=== PATIENT | female | born 1940 | race African-American/Black ===

== ENCOUNTER 2018-11-08 23:42 | Inpatient (IN) | payer MEDICARE, OTHER ==
[~2018-11-08] VITALS: Ht 162.6 cm; Wt 76.0 kg
[2018-11-08 23:48] VITALS: BP 133/54
[2018-11-09] VITALS: BP 133/54
[2018-11-09] MEDS ORDERED: PIPERACILLIN/TAZ 3.375G PREMIX 50 ML IV SCH ×2 (01:00→02:00)
[2018-11-09] MEDS: MORPHINE SULFATE 2 MG/ML CPJ (NOT FOR IM USE) IV PRN ×3 (01:37→21:37)
[2018-11-09] MEDS ORDERED: VANCOMYCIN 1500MG in DEXTROSE 5% WATER 250ML IV SCH (03:00)
[2018-11-09 04:00] VITALS: BP 141/58
[2018-11-09] MEDS ORDERED: PIOG15TA66 PO (06:14)
[2018-11-09] MEDS ORDERED: AMLO10TA80 PO (06:14)
[2018-11-09] MEDS ORDERED: TERA5CAP4 PO (06:14)
[2018-11-09] MEDS ORDERED: FERR324T4 PO (06:14)
[2018-11-09] MEDS ORDERED: METO-539 PO (06:14)
[2018-11-09] MEDS ORDERED: LINA5TAB PO (06:14)
[2018-11-09] MEDS ORDERED: SIMV20TA6 PO (06:14)
[2018-11-09] MEDS ORDERED: GLYB5TAB7 PO (06:14)
[2018-11-09] MEDS ORDERED: GLIM1TAB2 PO (06:14)
[2018-11-09] MEDS ORDERED: DEXTROSE 50% WATER 50ML SYRINGE IV PRN (06:15)
[2018-11-09] MEDS: BLOOD SUGAR DIAGNOSTIC STRIP TEST SCH ×3 (06:34→18:21)
[2018-11-09] MEDS: PANTOPRAZOLE 40MG DR TABLET PO SCH (06:58)
[2018-11-09] MEDS: INSULIN LISPRO 100 UNITS/ML SUBCUT SCH ×4 (07:50→21:32)
[2018-11-09 08:00] VITALS: BP 166/74
[2018-11-09] MEDS: AMLODIPINE 10MG TABLET PO SCH (09:34)
[2018-11-09] MEDS: METOPROLOL TARTRATE 50MG TABLET PO SCH ×2 (09:34→21:35)
[2018-11-09] MEDS: DEXT 5%/0.9% NACL 1,000 ML IV SCH (09:38)
[2018-11-09 10:01] LABS: EOSINOPHILS % 28.1 % (0.0-5.0); HEMATOCRIT. 28.8 % (36.0-48.0); HEMOGLOBIN. 9.1 g/dL (12.0-16.0); LYMPHOCYTES % 15.3 % (20.0-50.0); MEAN CORPUSCULAR HEMOGLOBIN 26.7 pg (28.0-32.0); MEAN CORPUSCULAR VOLUME 84.9 fL (81.0-99.0); MEAN PLATELET VOLUME 6.4 fl (7.4-10.4); MONOCYTES % 6.5 % (2.0-8.0); NEUTROPHILS % 49.1 % (40.0-76.0); PLATELET 312 x1000/uL (130-400); RED BLOOD CELL COUNT 3.39 mill/uL (4.2-5.4); RED CELL DISTRIBUTION WIDTH 16.7 % (11.6-14.6)
[2018-11-09 10:10] LABS: INR 1.1; PROTHROMBIN TIME 11.3 sec (9.6-11.0)
[2018-11-09] MEDS: PIPERACILLIN/TAZ 2.25G PREMIX 50 ML IV SCH ×3 (10:43→21:17)
[2018-11-09 12:03] LABS: PLATELET ESTIMATE NORMAL
[2018-11-09 15:23] LABS: CLARITY URINE CLOUDY (CLEAR); COLOR URINE DARK YELLOW (YELLOW); KETONES URINE 1+ (NEGATIVE); LEUKOCYTE ESTERASE URINE 1+ (NEGATIVE); NITRITE URINE NEGATIVE (NEGATIVE); OCCULT BLOOD URINE 1+ (NEGATIVE); PH URINE 5.5 (4.5-8.0); PROTEIN URINE 3+ (NEGATIVE); SPECIFIC GRAVITY URINE 1.028 (1.005-1.030)
[2018-11-09] MEDS: GABAPENTIN 100MG CAPSULE PO SCH (17:03)
[2018-11-09 20:00] VITALS: BP 145/57
[2018-11-09] MEDS ORDERED: TEMAZEPAM 15MG CAPSULE PO PRN (21:00)
[2018-11-09] MEDS: ATORVASTATIN CALCIUM 20MG TABLET PO SCH (21:34)
[2018-11-10] VITALS (17 sets, daily range): BP systolic 126–184; BP diastolic 51–84
[2018-11-10] MEDS: BLOOD SUGAR DIAGNOSTIC STRIP TEST SCH ×4 (00:12→16:58)
[2018-11-10] MEDS: PIPERACILLIN/TAZ 2.25G PREMIX 50 ML IV SCH ×4 (03:32→20:49)
[2018-11-10 06:58] LABS: HEMATOCRIT. 25.7 % (36.0-48.0); HEMOGLOBIN. 8.2 g/dL (12.0-16.0); MEAN CORPUSCULAR HEMOGLOBIN 27.3 pg (28.0-32.0); MEAN CORPUSCULAR VOLUME 85.2 fL (81.0-99.0); MEAN PLATELET VOLUME 6.6 fl (7.4-10.4); PLATELET 286 x1000/uL (130-400); RED BLOOD CELL COUNT 3.02 mill/uL (4.2-5.4); RED CELL DISTRIBUTION WIDTH 16.5 % (11.6-14.6)
[2018-11-10] MEDS: PANTOPRAZOLE 40MG DR TABLET PO SCH (07:00)
[2018-11-10] MEDS ORDERED: LIDOCAINE HCL 1% 20ML VIAL (Pyxis) INJ ONE ×2 (09:26→11:20)
[2018-11-10] MEDS: METOPROLOL TARTRATE 50MG TABLET PO SCH ×2 (09:28→20:49)
[2018-11-10] MEDS: AMLODIPINE 10MG TABLET PO SCH (09:28)
[2018-11-10] MEDS: INSULIN LISPRO 100 UNITS/ML SUBCUT SCH ×4 (09:30→21:57)
[2018-11-10] MEDS: ACETAMINOPHEN 325MG TABLET PO PRN (09:31)
[2018-11-10] MEDS ORDERED: FENTANYL CITRATE/PF 50MCG/ML 2ML VIAL ONE (11:20)
[2018-11-10] MEDS ORDERED: SODIUM BICARBONATE 4% (2.4MEQ) 5ML VIAL IV ONE (11:20)
[2018-11-10] MEDS ORDERED: SODIUM CHLORIDE 0.9% 10ML VIAL ONE (12:11)
[2018-11-10] MEDS ORDERED: FENTANYL CITRATE/PF 50MCG/ML 2ML VIAL IV ONE (12:30)
[2018-11-10 12:54] LABS: PLATELET ESTIMATE NORMAL
[2018-11-10] MEDS: LOSARTAN POTASSIUM 50 MG TABLET PO SCH (14:55)
[2018-11-10] MEDS: GABAPENTIN 100MG CAPSULE PO SCH (16:56)
[2018-11-10] MEDS ORDERED: IPRATROPIUM/ALBUTEROL 0.5-3(2.5)MG/3ML NEB HHN PRN (17:00)
[2018-11-10] MEDS: ATORVASTATIN CALCIUM 20MG TABLET PO SCH (20:48)
[2018-11-11] VITALS: BP 145/57
[2018-11-11] MEDS: DEXT 5%/0.9% NACL 1,000 ML IV SCH ×2 (00:12→21:11)
[2018-11-11] MEDS: PIPERACILLIN/TAZ 2.25G PREMIX 50 ML IV SCH ×4 (02:46→21:11)
[2018-11-11 04:00] VITALS: BP 151/59
[2018-11-11] MEDS: MORPHINE SULFATE 2 MG/ML CPJ (NOT FOR IM USE) IV PRN (05:27)
[2018-11-11] MEDS: BLOOD SUGAR DIAGNOSTIC STRIP TEST SCH ×4 (06:00→17:57)
[2018-11-11] MEDS: ONDANSETRON HCL 4MG/2ML INJ IV PRN ×2 (06:19→12:21)
[2018-11-11] MEDS: PANTOPRAZOLE 40MG DR TABLET PO SCH (07:20)
[2018-11-11 07:29] LABS: HEMATOCRIT. 26.5 % (36.0-48.0); HEMOGLOBIN. 8.2 g/dL (12.0-16.0); MEAN CORPUSCULAR HEMOGLOBIN 26.5 pg (28.0-32.0); MEAN CORPUSCULAR VOLUME 85.5 fL (81.0-99.0); MEAN PLATELET VOLUME 6.7 fl (7.4-10.4); PLATELET 298 x1000/uL (130-400); RED BLOOD CELL COUNT 3.09 mill/uL (4.2-5.4); RED CELL DISTRIBUTION WIDTH 16.4 % (11.6-14.6)
[2018-11-11 07:40] LABS: CHLORIDE 101 mEq/L (98-107)
[2018-11-11 07:57] LABS: PHOSPHORUS 6.3 mg/dL (2.5-4.9)
[2018-11-11 07:59] LABS: TOTAL IRON BINDING CAPACITY 227 ug/dL (250-450)
[2018-11-11 08:00] VITALS: BP 134/56
[2018-11-11] MEDS: INSULIN LISPRO 100 UNITS/ML SUBCUT SCH ×4 (08:25→21:00)
[2018-11-11] MEDS: AMLODIPINE 10MG TABLET PO SCH (08:27)
[2018-11-11] MEDS: METOPROLOL TARTRATE 50MG TABLET PO SCH ×2 (08:27→21:12)
[2018-11-11] MEDS: LOSARTAN POTASSIUM 50 MG TABLET PO SCH (08:27)
[2018-11-11 12:00] VITALS: BP 138/55
[2018-11-11] MEDS: SEVELAMER CARBONATE 800 MG TABLET PO SCH ×2 (13:02→17:17)
[2018-11-11 13:35] LABS: PLATELET ESTIMATE NORMAL
[2018-11-11 16:00] VITALS: BP 118/64
[2018-11-11] MEDS: GABAPENTIN 100MG CAPSULE PO SCH (17:16)
[2018-11-11 20:00] VITALS: BP 143/53
[2018-11-11] MEDS: ATORVASTATIN CALCIUM 20MG TABLET PO SCH (21:12)
[2018-11-11] MEDS: EPOETIN ALFA 10000UNITS/ML VIAL SUBCUT SCH (21:13)
[2018-11-11 22:47] LABS: BASOPHILS % 0.8 % (0.0-2.0); EOSINOPHILS % 15.6 % (0.0-5.0); HEMATOCRIT. 25.1 % (36.0-48.0); LYMPHOCYTES % 11.7 % (20.0-50.0); MEAN CORPUSCULAR HEMOGLOBIN 27.2 pg (28.0-32.0); MEAN CORPUSCULAR VOLUME 85.4 fL (81.0-99.0); MEAN PLATELET VOLUME 6.5 fl (7.4-10.4); MONOCYTES % 6.9 % (2.0-8.0); PLATELET 258 x1000/uL (130-400); RED BLOOD CELL COUNT 2.94 mill/uL (4.2-5.4); RED CELL DISTRIBUTION WIDTH 16.8 % (11.6-14.6)
[2018-11-11 22:52] LABS: INR 1.1; PROTHROMBIN TIME 11.4 sec (9.6-11.0)
[2018-11-12] VITALS (8 sets, daily range): BP systolic 91–168; BP diastolic 49–75
[2018-11-12] MEDS: BLOOD SUGAR DIAGNOSTIC STRIP TEST SCH ×4 (00:30→18:08)
[2018-11-12] MEDS: PIPERACILLIN/TAZ 2.25G PREMIX 50 ML IV SCH ×4 (02:40→21:43)
[2018-11-12] MEDS: PANTOPRAZOLE 40MG DR TABLET PO SCH (06:22)
[2018-11-12 06:42] LABS: HEMATOCRIT. 23.9 % (36.0-48.0); HEMOGLOBIN. 7.6 g/dL (12.0-16.0); MEAN CORPUSCULAR HEMOGLOBIN 27.5 pg (28.0-32.0); MEAN PLATELET VOLUME 6.9 fl (7.4-10.4); PLATELET 266 x1000/uL (130-400); RED BLOOD CELL COUNT 2.78 mill/uL (4.2-5.4); RED CELL DISTRIBUTION WIDTH 16.6 % (11.6-14.6)
[2018-11-12 07:06] LABS: PHOSPHORUS 5.4 mg/dL (2.5-4.9)
[2018-11-12] MEDS: SEVELAMER CARBONATE 800 MG TABLET PO SCH ×3 (08:07→18:08)
[2018-11-12] MEDS: LOSARTAN POTASSIUM 50 MG TABLET PO SCH (08:07)
[2018-11-12] MEDS: AMLODIPINE 10MG TABLET PO SCH (08:08)
[2018-11-12] MEDS: METOPROLOL TARTRATE 50MG TABLET PO SCH ×2 (08:08→21:42)
[2018-11-12] MEDS: INSULIN LISPRO 100 UNITS/ML SUBCUT SCH ×3 (08:12→17:50)
[2018-11-12 08:21] LABS: PLATELET ESTIMATE NORMAL
[2018-11-12] MEDS: ONDANSETRON HCL 4MG/2ML INJ IV PRN (08:49)
[2018-11-12] MEDS: IRON SUCROSE COMPLEX 100 MG/5 ML ML IV SCH (13:15)
[2018-11-12] MEDS ORDERED: SODIUM CHLORIDE 0.9% 1,000 ML IV SCH (15:30)
[2018-11-12] MEDS: GABAPENTIN 100MG CAPSULE PO SCH (18:08)
[2018-11-12] MEDS: FLUCONAZOLE 200 MG/100ML BAG 100 ML IV SCH (18:08)
[2018-11-12] MEDS ORDERED: VANCOMYCIN 1 G PREMIX 200 ML IV NR (21:00)
[2018-11-12] MEDS: ATORVASTATIN CALCIUM 20MG TABLET PO SCH (21:42)
[2018-11-13] VITALS (52 sets, daily range): BP systolic 107–177; BP diastolic 26–81
[2018-11-13] MEDS: ACETAMINOPHEN 325MG TABLET PO PRN (00:39)
[2018-11-13] MEDS: BLOOD SUGAR DIAGNOSTIC STRIP TEST SCH ×5 (00:39→23:33)
[2018-11-13] MEDS: INSULIN LISPRO 100 UNITS/ML SUBCUT SCH ×5 (01:03→23:33)
[2018-11-13] MEDS: PANTOPRAZOLE 40MG DR TABLET PO SCH (06:15)
[2018-11-13] MEDS: PIPERACILLIN/TAZ 2.25G PREMIX 50 ML IV SCH ×3 (06:15→21:37)
[2018-11-13] MEDS: CLONIDINE 0.1MG TABLET PO PRN (06:15)
[2018-11-13 07:39] LABS: HEMATOCRIT. 28.9 % (36.0-48.0); HEMOGLOBIN. 9.1 g/dL (12.0-16.0); MEAN CORPUSCULAR HEMOGLOBIN 27.3 pg (28.0-32.0); MEAN CORPUSCULAR VOLUME 86.9 fL (81.0-99.0); MEAN PLATELET VOLUME 7.1 fl (7.4-10.4); PLATELET 233 x1000/uL (130-400); RED BLOOD CELL COUNT 3.32 mill/uL (4.2-5.4); RED CELL DISTRIBUTION WIDTH 16.4 % (11.6-14.6)
[2018-11-13] MEDS: SEVELAMER CARBONATE 800 MG TABLET PO SCH ×3 (07:50→16:11)
[2018-11-13 08:39] LABS: CHLORIDE 102 mEq/L (98-107)
[2018-11-13] MEDS: METOPROLOL TARTRATE 50MG TABLET PO SCH ×2 (09:00→21:00)
[2018-11-13] MEDS: AMLODIPINE 10MG TABLET PO SCH (09:00)
[2018-11-13] MEDS: LOSARTAN POTASSIUM 100 MG TABLET PO SCH (09:00)
[2018-11-13 09:01] LABS: PHOSPHORUS 3.9 mg/dL (2.5-4.9)
[2018-11-13] MEDS ORDERED: THROMBIN (BOVINE) 5000 UNITS/VIAL TOP ONE (09:01)
[2018-11-13] MEDS ORDERED: BACITRACIN 50,000 UNITS/VIAL ONE (09:02)
[2018-11-13] MEDS ORDERED: NORMAL SALINE 0.9% 10 ML SYR ONE (09:02)
[2018-11-13] MEDS ORDERED: LIDOCAINE HCL/EPINEPHRINE 1%-EPI 1:100,000 20 ML VIAL ONE (09:02)
[2018-11-13] MEDS ORDERED: CEFAZOLIN SODIUM 1000MG/VIAL ONE (09:44)
[2018-11-13] MEDS ORDERED: MIDAZOLAM HCL 2 MG/2 ML VIAL ONE (09:44)
[2018-11-13] MEDS ORDERED: ROCURONIUM BROMIDE 10MG/ML VIAL 5ML IV ONE (09:44)
[2018-11-13] MEDS ORDERED: PROPOFOL 200MG/20ML VIAL IV ONE ×2 (09:44→10:50)
[2018-11-13] MEDS ORDERED: NEOSTIGMINE METHYLSULFATE 1MG/ML 10 ML VIAL ONE (09:44)
[2018-11-13] MEDS ORDERED: GLYCOPYRROLATE 0.2 MG/ML 2ML VIAL ONE (09:44)
[2018-11-13] MEDS ORDERED: FENTANYL CITRATE/PF 50MCG/ML 2ML VIAL ONE ×2 (09:44→10:24)
[2018-11-13] MEDS ORDERED: LIDOCAINE HCL/PF 1% 10 MG/ML 5ML VIAL ONE (09:44)
[2018-11-13] MEDS ORDERED: SODIUM CHLORIDE 0.9% 10ML VIAL ONE (09:45)
[2018-11-13] MEDS ORDERED: METOCLOPRAMIDE HCL 10MG/2ML VIAL ONE (09:45)
[2018-11-13] MEDS ORDERED: DEXAMETHASONE 4MG/ML 1ML VIAL ONE (09:45)
[2018-11-13] MEDS ORDERED: SUCCINYLCHOLINE CHLORIDE 200MG/10ML IV ONE (09:45)
[2018-11-13] MEDS ORDERED: EPHEDRINE SULFATE 50MG/ML VIAL ONE (09:45)
[2018-11-13] MEDS ORDERED: PHENYLEPHRINE HCL 10 MG/ML 1ML (IV VIAL) IV ONE (09:45)
[2018-11-13] MEDS ORDERED: ONDANSETRON HCL 4MG/2ML INJ ONE (09:45)
[2018-11-13] MEDS ORDERED: ETOMIDATE 2MG/ML 10ML VIAL IV ONE (09:51)
[2018-11-13] MEDS ORDERED: VECURONIUM BROMIDE 10 MG/VIAL IV ONE (10:50)
[2018-11-13 13:40] LABS: PLATELET ESTIMATE NORMAL
[2018-11-13] MEDS: MORPHINE SULFATE 2 MG/ML CPJ (NOT FOR IM USE) IV PRN (13:40)
[2018-11-13] MEDS: DEXT 5%/LACTATED RINGERS 1,000 ML IV SCH (13:46)
[2018-11-13] MEDS: NICARDIPINE 100 MG in SODIUM CHLORIDE 0.9% 60 ML IV PRN (13:48)
[2018-11-13] MEDS: IRON SUCROSE COMPLEX 100 MG/5 ML ML IV SCH (14:04)
[2018-11-13] MEDS ORDERED: DIPHENHYDRAMINE INJ IV PRN (15:30)
[2018-11-13] MEDS ORDERED: NALOXONE INJ IV PRN (15:30)
[2018-11-13] MEDS ORDERED: ONDANSETRON INJ IV PRN (15:30)
[2018-11-13] MEDS: GABAPENTIN 100MG CAPSULE PO SCH (16:11)
[2018-11-13 16:22] LABS: BG BASE EXCESS 0.2 mmol/L (-2.0-2.0); BG CARBOXYHEMOGLOBIN 1.4 % (0.5-1.5); BG DEOXYHEMOGLOBIN 2.9 % (0.0-5.0); BG FRACTION INSPIRED OXYGEN 40; BG HCO3 ACT 26.9 mmol/L (22.0-26.0); BG METHEMOGLOBIN 0.2 % (0.0-1.5); BG OXYGEN SATURATION 97.1 % (92.0-98.5); BG OXYHEMOGLOBIN 95.5 % (94.0-97.0); BG PCO2 55.5 mmHg (35.0-45.0); BG PH 7.304 (7.350-7.450); BG PO2 101.8 mmHg (75.0-100.0); BG PRESSURE SUPPORT 8; BG SAMPLE SITE A-LINE; BG TOTAL HEMOGLOBIN 8.3 g/dL (12.0-18.0); BG VENT MODE VENT - CPAP
[2018-11-13] MEDS ORDERED: PROPOFOL 10MG/ML 100ML 100 ML IV PRN (16:30)
[2018-11-13] MEDS ORDERED: HYDROMORPHONE PCA 10MG/50ML IV PRN (16:30)
[2018-11-13] MEDS ORDERED: METHYLPREDNISOLONE SOD SUCC 40 MG/ML VIAL IV NR (16:45)
[2018-11-13] MEDS: FLUCONAZOLE 200 MG/100ML BAG 100 ML IV SCH (16:54)
[2018-11-13] MEDS: IPRATROPIUM/ALBUTEROL 0.5-3(2.5)MG/3ML NEB HHN SCH (20:39)
[2018-11-13] MEDS: BUDESONIDE 0.5MG/2ML NEB HHN SCH (20:40)
[2018-11-13] MEDS: AMLODIPINE 2.5MG TABLET NG SCH (21:00)
[2018-11-13] MEDS: ATORVASTATIN CALCIUM 20MG TABLET PO SCH (21:00)
[2018-11-14] VITALS (96 sets, daily range): BP systolic 90–160; BP diastolic 35–74
[2018-11-14] MEDS: IPRATROPIUM/ALBUTEROL 0.5-3(2.5)MG/3ML NEB HHN SCH ×6 (00:50→21:30)
[2018-11-14 05:37] LABS: HEMATOCRIT. 24.5 % (36.0-48.0); HEMOGLOBIN. 7.9 g/dL (12.0-16.0); MEAN CORPUSCULAR HEMOGLOBIN 27.7 pg (28.0-32.0); MEAN CORPUSCULAR VOLUME 85.2 fL (81.0-99.0); MEAN PLATELET VOLUME 7.5 fl (7.4-10.4); PLATELET 215 x1000/uL (130-400); RED BLOOD CELL COUNT 2.87 mill/uL (4.2-5.4); RED CELL DISTRIBUTION WIDTH 16.5 % (11.6-14.6)
[2018-11-14 06:06] LABS: PHOSPHORUS 5.3 mg/dL (2.5-4.9)
[2018-11-14] MEDS: PANTOPRAZOLE 40MG DR TABLET PO SCH (06:30)
[2018-11-14] MEDS: BLOOD SUGAR DIAGNOSTIC STRIP TEST SCH ×4 (06:45→23:59)
[2018-11-14] MEDS ORDERED: EPOETIN ALFA 10000UNITS/ML VIAL SUBCUT ONE (06:45)
[2018-11-14] MEDS: DEXT 5%/LACTATED RINGERS 1,000 ML IV SCH (06:45)
[2018-11-14] MEDS: SEVELAMER CARBONATE 800 MG TABLET PO SCH ×3 (06:45→17:01)
[2018-11-14] MEDS: INSULIN LISPRO 100 UNITS/ML SUBCUT SCH ×4 (06:51→23:59)
[2018-11-14] MEDS: PIPERACILLIN/TAZ 2.25G PREMIX 50 ML IV SCH ×3 (07:17→21:16)
[2018-11-14] MEDS: AMLODIPINE 2.5MG TABLET NG SCH ×2 (08:11→21:15)
[2018-11-14] MEDS: LOSARTAN POTASSIUM 100 MG TABLET PO SCH (08:12)
[2018-11-14] MEDS: METOPROLOL TARTRATE 50MG TABLET PO SCH ×2 (08:12→21:15)
[2018-11-14] MEDS: BUDESONIDE 0.5MG/2ML NEB HHN SCH ×2 (08:18→21:30)
[2018-11-14 09:39] LABS: BG BASE EXCESS 1.4 mmol/L (-2.0-2.0); BG CARBOXYHEMOGLOBIN 0.5 % (0.5-1.5); BG CPAP (cmH2O) 0 cm(H2O); BG DEOXYHEMOGLOBIN 1.9 % (0.0-5.0); BG HCO3 ACT 26.3 mmol/L (22.0-26.0); BG OXYGEN SATURATION 98.1 % (92.0-98.5); BG OXYHEMOGLOBIN 97.6 % (94.0-97.0); BG PCO2 42.8 mmHg (35.0-45.0); BG PH 7.406 (7.350-7.450); BG PO2 117.5 mmHg (75.0-100.0); BG SAMPLE SITE A-LINE; BG TOTAL HEMOGLOBIN 8.3 g/dL (12.0-18.0); BG VENT MODE VENT - CPAP
[2018-11-14] MEDS: MORPHINE SULFATE 2 MG/ML CPJ (NOT FOR IM USE) IV PRN ×2 (11:19→23:36)
[2018-11-14 11:37] LABS: PLATELET ESTIMATE NORMAL
[2018-11-14] MEDS: IRON SUCROSE COMPLEX 100 MG/5 ML ML IV SCH (12:33)
[2018-11-14] MEDS ORDERED: DOCUSATE SODIUM 250MG CAPSULE PO PRN (13:00)
[2018-11-14] MEDS ORDERED: TRAMADOL 50MG TABLET PO PRN (13:00)
[2018-11-14] MEDS: TRAMADOL 50MG TABLET PO PRN (16:02)
[2018-11-14] MEDS: FLUCONAZOLE 200 MG/100ML BAG 100 ML IV SCH (17:01)
[2018-11-14] MEDS: GABAPENTIN 100MG CAPSULE PO SCH (17:01)
[2018-11-14] MEDS: ATORVASTATIN CALCIUM 20MG TABLET PO SCH (21:15)
[2018-11-14] MEDS: EPOETIN ALFA 10000UNITS/ML VIAL SUBCUT SCH (21:16)
[2018-11-14] MEDS: NICARDIPINE 100 MG in SODIUM CHLORIDE 0.9% 60 ML IV PRN (22:43)
[2018-11-15] VITALS (97 sets, daily range): BP systolic 108–161; BP diastolic 49–85
[2018-11-15] MEDS: IPRATROPIUM/ALBUTEROL 0.5-3(2.5)MG/3ML NEB HHN SCH ×4 (00:46→20:18)
[2018-11-15] MEDS: DEXT 5%/LACTATED RINGERS 1,000 ML IV SCH (02:30)
[2018-11-15] MEDS: MICAFUNGIN 100 MG in SODIUM CHLORIDE 0.9% 100 ML IV SCH (02:31)
[2018-11-15 05:17] LABS: EOSINOPHILS % 4.1 % (0.0-5.0); HEMATOCRIT. 21.6 % (36.0-48.0); LYMPHOCYTES % 12.2 % (20.0-50.0); MEAN CORPUSCULAR HEMOGLOBIN 27.7 pg (28.0-32.0); MEAN CORPUSCULAR VOLUME 87.2 fL (81.0-99.0); MEAN PLATELET VOLUME 7.3 fl (7.4-10.4); MONOCYTES % 10.1 % (2.0-8.0); NEUTROPHILS % 72.6 % (40.0-76.0); PLATELET 223 x1000/uL (130-400); RED BLOOD CELL COUNT 2.48 mill/uL (4.2-5.4); RED CELL DISTRIBUTION WIDTH 17.3 % (11.6-14.6)
[2018-11-15 05:36] LABS: PHOSPHORUS 4.1 mg/dL (2.5-4.9)
[2018-11-15] MEDS: SEVELAMER CARBONATE 800 MG TABLET PO SCH ×3 (06:19→17:00)
[2018-11-15] MEDS: BLOOD SUGAR DIAGNOSTIC STRIP TEST SCH ×4 (06:19→21:00)
[2018-11-15] MEDS: PIPERACILLIN/TAZ 2.25G PREMIX 50 ML IV SCH (06:19)
[2018-11-15] MEDS: PANTOPRAZOLE 40MG DR TABLET PO SCH (06:19)
[2018-11-15] MEDS: TRAMADOL 50MG TABLET PO PRN (06:25)
[2018-11-15 06:28] LABS: HEMOGLOBIN. 6.9 g/dL (12.0-16.0)
[2018-11-15] MEDS: INSULIN LISPRO 100 UNITS/ML SUBCUT SCH ×4 (06:30→21:00)
[2018-11-15] MEDS: BUDESONIDE 0.5MG/2ML NEB HHN SCH ×2 (08:04→20:18)
[2018-11-15] MEDS: LOSARTAN POTASSIUM 100 MG TABLET PO SCH (09:08)
[2018-11-15] MEDS: METOPROLOL TARTRATE 50MG TABLET PO SCH ×2 (09:08→21:20)
[2018-11-15] MEDS: AMLODIPINE 2.5MG TABLET NG SCH (09:09)
[2018-11-15] MEDS: ONDANSETRON HCL 4MG/2ML INJ IV PRN ×2 (09:30→21:19)
[2018-11-15 15:08] LABS: HEMATOCRIT 26.5 % (36.0-48.0); HEMOGLOBIN 8.5 g/dL (12.0-16.0); MEAN CORPUSCULAR VOLUME 87.4 fL (81.0-99.0); PLATELET 237 x1000/uL (130-400); RED BLOOD CELL COUNT 3.03 mill/uL (4.2-5.4); RED CELL DISTRIBUTION WIDTH 16.7 % (11.6-14.6)
[2018-11-15] MEDS ORDERED: VANCOMYCIN 750 MG PREMIX 150 ML IV NR (17:00)
[2018-11-15 17:27] LABS: INR 1.1; PROTHROMBIN TIME 10.9 sec (9.6-11.0)
[2018-11-15] MEDS: GABAPENTIN 100MG CAPSULE PO SCH (18:55)
[2018-11-15] MEDS: NICARDIPINE 100 MG in SODIUM CHLORIDE 0.9% 60 ML IV PRN (20:25)
[2018-11-15] MEDS: ATORVASTATIN CALCIUM 20MG TABLET PO SCH (21:19)
[2018-11-15] MEDS: AMLODIPINE 5MG TABLET NG SCH (21:20)
[2018-11-16] VITALS (87 sets, daily range): BP systolic 127–167; BP diastolic 44–118
[2018-11-16] MEDS: IPRATROPIUM/ALBUTEROL 0.5-3(2.5)MG/3ML NEB HHN SCH ×6 (00:26→20:11)
[2018-11-16] MEDS: MICAFUNGIN 100 MG in SODIUM CHLORIDE 0.9% 100 ML IV SCH (01:36)
[2018-11-16 05:36] LABS: BASOPHILS % 1.2 % (0.0-2.0); HEMATOCRIT. 26.9 % (36.0-48.0); HEMOGLOBIN. 8.4 g/dL (12.0-16.0); LYMPHOCYTES % 10.1 % (20.0-50.0); MEAN CORPUSCULAR HEMOGLOBIN 27.5 pg (28.0-32.0); MEAN CORPUSCULAR VOLUME 87.9 fL (81.0-99.0); MEAN PLATELET VOLUME 7.1 fl (7.4-10.4); MONOCYTES % 7.1 % (2.0-8.0); NEUTROPHILS % 68.6 % (40.0-76.0); PLATELET 246 x1000/uL (130-400); RED BLOOD CELL COUNT 3.06 mill/uL (4.2-5.4); RED CELL DISTRIBUTION WIDTH 16.8 % (11.6-14.6)
[2018-11-16] MEDS: INSULIN LISPRO 100 UNITS/ML SUBCUT SCH ×4 (06:30→20:39)
[2018-11-16] MEDS: BLOOD SUGAR DIAGNOSTIC STRIP TEST SCH ×4 (06:31→20:40)
[2018-11-16] MEDS: PANTOPRAZOLE 40MG DR TABLET PO SCH (06:32)
[2018-11-16] MEDS: SEVELAMER CARBONATE 800 MG TABLET PO SCH ×3 (06:32→17:31)
[2018-11-16] MEDS: NICARDIPINE 100 MG in SODIUM CHLORIDE 0.9% 60 ML IV PRN (07:35)
[2018-11-16] MEDS: BUDESONIDE 0.5MG/2ML NEB HHN SCH (08:01)
[2018-11-16] MEDS: ONDANSETRON HCL 4MG/2ML INJ IV PRN (09:19)
[2018-11-16] MEDS: LOSARTAN POTASSIUM 100 MG TABLET PO SCH (09:19)
[2018-11-16] MEDS: AMLODIPINE 5MG TABLET NG SCH ×2 (09:20→20:39)
[2018-11-16] MEDS: METOPROLOL TARTRATE 50MG TABLET PO SCH (09:20)
[2018-11-16] MEDS ORDERED: NICARDIPINE 100 MG in SODIUM CHLORIDE 0.9% 60 ML IV SCH (10:30)
[2018-11-16] MEDS: CLONIDINE 0.1MG TABLET PO PRN (13:16)
[2018-11-16] MEDS: GABAPENTIN 100MG CAPSULE PO SCH (17:31)
[2018-11-16] MEDS: MORPHINE SULFATE 2 MG/ML CPJ (NOT FOR IM USE) IV PRN ×2 (17:58→22:48)
[2018-11-16] MEDS: ATORVASTATIN CALCIUM 20MG TABLET PO SCH (20:40)
[2018-11-16] MEDS: METOPROLOL TARTRATE 100MG TABLET PO SCH (20:40)
[2018-11-16] MEDS: HYDRALAZINE HCL 50MG TABLET PO SCH (20:40)
[2018-11-16] MEDS: EPOETIN ALFA 10000UNITS/ML VIAL SUBCUT SCH (21:20)
[2018-11-17] VITALS (85 sets, daily range): BP systolic 103–155; BP diastolic 30–103
[2018-11-17] MEDS: IPRATROPIUM/ALBUTEROL 0.5-3(2.5)MG/3ML NEB HHN SCH ×6 (00:07→19:46)
[2018-11-17] MEDS: MICAFUNGIN 100 MG in SODIUM CHLORIDE 0.9% 100 ML IV SCH (01:26)
[2018-11-17 05:25] LABS: BASOPHILS % 1.2 % (0.0-2.0); EOSINOPHILS % 11.5 % (0.0-5.0); HEMATOCRIT. 25.9 % (36.0-48.0); HEMOGLOBIN. 8.5 g/dL (12.0-16.0); LYMPHOCYTES % 11.3 % (20.0-50.0); MEAN CORPUSCULAR HEMOGLOBIN 28.6 pg (28.0-32.0); MEAN CORPUSCULAR VOLUME 87.6 fL (81.0-99.0); MEAN PLATELET VOLUME 7.1 fl (7.4-10.4); MONOCYTES % 7.4 % (2.0-8.0); NEUTROPHILS % 68.6 % (40.0-76.0); PLATELET 226 x1000/uL (130-400); RED BLOOD CELL COUNT 2.96 mill/uL (4.2-5.4); RED CELL DISTRIBUTION WIDTH 16.6 % (11.6-14.6)
[2018-11-17] MEDS: BLOOD SUGAR DIAGNOSTIC STRIP TEST SCH ×4 (06:25→21:46)
[2018-11-17] MEDS: INSULIN LISPRO 100 UNITS/ML SUBCUT SCH ×4 (06:26→21:47)
[2018-11-17] MEDS: SEVELAMER CARBONATE 800 MG TABLET PO SCH ×3 (06:51→17:50)
[2018-11-17] MEDS ORDERED: BUDESONIDE 0.5MG/2ML NEB ONE (07:58)
[2018-11-17] MEDS: AMLODIPINE 5MG TABLET NG SCH ×2 (08:32→21:46)
[2018-11-17] MEDS: LOSARTAN POTASSIUM 100 MG TABLET PO SCH (08:32)
[2018-11-17] MEDS: METOPROLOL TARTRATE 100MG TABLET PO SCH ×2 (08:32→21:46)
[2018-11-17] MEDS: HYDRALAZINE HCL 50MG TABLET PO SCH ×2 (08:32→21:46)
[2018-11-17] MEDS ORDERED: ZOLPIDEM TARTRATE 5MG TABLET PO PRN (09:00)
[2018-11-17] MEDS ORDERED: MECLIZINE 25MG TABLET PO PRN (09:00)
[2018-11-17] MEDS: MORPHINE SULFATE 2 MG/ML CPJ (NOT FOR IM USE) IV PRN (09:06)
[2018-11-17] MEDS ORDERED: VANCOMYCIN 1 G PREMIX 200 ML IV NR (15:00)
[2018-11-17] MEDS: GABAPENTIN 100MG CAPSULE PO SCH (17:50)
[2018-11-17] MEDS: ATORVASTATIN CALCIUM 20MG TABLET PO SCH (21:46)
[2018-11-18] VITALS (26 sets, daily range): BP systolic 107–168; BP diastolic 30–105
[2018-11-18] MEDS: IPRATROPIUM/ALBUTEROL 0.5-3(2.5)MG/3ML NEB HHN SCH ×6 (00:40→20:41)
[2018-11-18] MEDS: MICAFUNGIN 100 MG in SODIUM CHLORIDE 0.9% 100 ML IV SCH (01:06)
[2018-11-18] MEDS: INSULIN LISPRO 100 UNITS/ML SUBCUT SCH ×4 (05:33→21:00)
[2018-11-18] MEDS: BLOOD SUGAR DIAGNOSTIC STRIP TEST SCH ×4 (05:33→21:08)
[2018-11-18 05:45] LABS: EOSINOPHILS % 12.5 % (0.0-5.0); HEMATOCRIT. 25.9 % (36.0-48.0); HEMOGLOBIN. 8.5 g/dL (12.0-16.0); LYMPHOCYTES % 14.2 % (20.0-50.0); MEAN CORPUSCULAR HEMOGLOBIN 28.7 pg (28.0-32.0); MEAN CORPUSCULAR VOLUME 87.8 fL (81.0-99.0); MEAN PLATELET VOLUME 7.1 fl (7.4-10.4); MONOCYTES % 7.6 % (2.0-8.0); NEUTROPHILS % 64.7 % (40.0-76.0); PLATELET 260 x1000/uL (130-400); RED BLOOD CELL COUNT 2.95 mill/uL (4.2-5.4); RED CELL DISTRIBUTION WIDTH 17.2 % (11.6-14.6)
[2018-11-18] MEDS: SEVELAMER CARBONATE 800 MG TABLET PO SCH ×3 (09:29→17:01)
[2018-11-18] MEDS: HYDRALAZINE HCL 50MG TABLET PO SCH ×2 (09:31→21:21)
[2018-11-18] MEDS: METOPROLOL TARTRATE 100MG TABLET PO SCH ×2 (09:32→21:22)
[2018-11-18] MEDS: AMLODIPINE 5MG TABLET NG SCH ×2 (09:32→21:22)
[2018-11-18] MEDS: LOSARTAN POTASSIUM 100 MG TABLET PO SCH (09:32)
[2018-11-18] MEDS: GABAPENTIN 100MG CAPSULE PO SCH (16:47)
[2018-11-18] MEDS: ATORVASTATIN CALCIUM 20MG TABLET PO SCH (21:09)
[2018-11-19] VITALS: BP 176/63
[2018-11-19] MEDS: IPRATROPIUM/ALBUTEROL 0.5-3(2.5)MG/3ML NEB HHN SCH ×6 (00:23→21:00)
[2018-11-19] MEDS: MICAFUNGIN 100 MG in SODIUM CHLORIDE 0.9% 100 ML IV SCH (02:05)
[2018-11-19 04:00] VITALS: BP 151/52
[2018-11-19 06:14] LABS: EOSINOPHILS % 9.3 % (0.0-5.0); HEMATOCRIT. 23.6 % (36.0-48.0); HEMOGLOBIN. 7.7 g/dL (12.0-16.0); LYMPHOCYTES % 12.7 % (20.0-50.0); MEAN CORPUSCULAR HEMOGLOBIN 28.7 pg (28.0-32.0); MEAN CORPUSCULAR VOLUME 87.3 fL (81.0-99.0); MONOCYTES % 8.7 % (2.0-8.0); NEUTROPHILS % 68.3 % (40.0-76.0); PLATELET 249 x1000/uL (130-400); RED CELL DISTRIBUTION WIDTH 17.3 % (11.6-14.6)
[2018-11-19] MEDS: INSULIN LISPRO 100 UNITS/ML SUBCUT SCH ×4 (07:10→22:19)
[2018-11-19] MEDS: BLOOD SUGAR DIAGNOSTIC STRIP TEST SCH ×4 (07:37→21:00)
[2018-11-19] MEDS: HYDRALAZINE HCL 50MG TABLET PO SCH ×2 (08:13→22:11)
[2018-11-19] MEDS: SEVELAMER CARBONATE 800 MG TABLET PO SCH ×3 (08:14→18:47)
[2018-11-19] MEDS: LOSARTAN POTASSIUM 100 MG TABLET PO SCH (08:15)
[2018-11-19] MEDS: AMLODIPINE 5MG TABLET NG SCH ×2 (08:15→22:11)
[2018-11-19] MEDS: METOPROLOL TARTRATE 100MG TABLET PO SCH ×2 (08:16→22:16)
[2018-11-19 11:09] VITALS: BP 141/45
[2018-11-19 16:26] VITALS: BP 153/60
[2018-11-19] MEDS: GABAPENTIN 100MG CAPSULE PO SCH (18:48)
[2018-11-19 20:00] VITALS: BP 167/62
[2018-11-19] MEDS: ATORVASTATIN CALCIUM 20MG TABLET PO SCH (22:11)
[2018-11-20] VITALS: BP 150/53
[2018-11-20] MEDS: IPRATROPIUM/ALBUTEROL 0.5-3(2.5)MG/3ML NEB HHN SCH ×4 (01:00→12:33)
[2018-11-20] MEDS: MICAFUNGIN 100 MG in SODIUM CHLORIDE 0.9% 100 ML IV SCH (02:50)
[2018-11-20 04:00] VITALS: BP 114/54
[2018-11-20] MEDS: INSULIN LISPRO 100 UNITS/ML SUBCUT SCH ×2 (06:30→12:56)
[2018-11-20] MEDS: BLOOD SUGAR DIAGNOSTIC STRIP TEST SCH ×2 (06:30→13:07)
[2018-11-20 07:50] LABS: PHOSPHORUS 2.9 mg/dL (2.5-4.9)
[2018-11-20 07:56] LABS: HEMATOCRIT. 23.8 % (36.0-48.0); HEMOGLOBIN. 7.7 g/dL (12.0-16.0); MEAN CORPUSCULAR HEMOGLOBIN 28.6 pg (28.0-32.0); MEAN CORPUSCULAR VOLUME 88.7 fL (81.0-99.0); PLATELET 262 x1000/uL (130-400); RED BLOOD CELL COUNT 2.69 mill/uL (4.2-5.4); RED CELL DISTRIBUTION WIDTH 17.1 % (11.6-14.6)
[2018-11-20 08:18] VITALS: BP 167/56
[2018-11-20] MEDS: SEVELAMER CARBONATE 800 MG TABLET PO SCH ×2 (08:56→13:12)
[2018-11-20] MEDS: CLONIDINE 0.1MG TABLET PO PRN (08:57)
[2018-11-20] MEDS: AMLODIPINE 5MG TABLET NG SCH (08:58)
[2018-11-20] MEDS: LOSARTAN POTASSIUM 100 MG TABLET PO SCH (08:58)
[2018-11-20] MEDS: METOPROLOL TARTRATE 100MG TABLET PO SCH (08:58)
[2018-11-20] MEDS: HYDRALAZINE HCL 50MG TABLET PO SCH (08:58)
[2018-11-20] MEDS ORDERED: VANCOMYCIN 1 G PREMIX 200 ML IV NR (11:00)
[2018-11-20 12:12] VITALS: BP 147/57
[2018-11-20] MEDS: ACETAMINOPHEN 325MG TABLET PO PRN (13:12)
[2018-11-20 15:46] LABS: PLATELET ESTIMATE NORMAL
[2018-11-20 16:08] VITALS: BP 128/47
[2018-11-20 17:12] VITALS: BP 147/57
[2018-11-20] MEDS ORDERED: HYDRALAZINE HCL 100MG TABLET PO SCH (21:00)
[2018-11-21] MEDS ORDERED: NIFEDIPINE XL 60MG TAB PO SCH (09:00)
== END 2018-11-20 17:35 | DRG 853 ==
LOC: 6EST 23:42 → MICUNO 11-13 10:11 → MICUSO 11-17 20:30 → 8WST 11-18 18:55
PROVIDERS: ADMIT Internal Medicine; ATTEND Internal Medicine
PROC: 02HV33Z Insertion of Infusion Device into Superior Vena Cava, Percutaneous Approach (ICD-10-PCS; 2018-11-10)
PROC: B518ZZA Fluoroscopy of Superior Vena Cava, Guidance (ICD-10-PCS; 2018-11-10)
PROC: B548ZZA Ultrasonography of Superior Vena Cava, Guidance (ICD-10-PCS; 2018-11-10)
PROC: 0S903ZZ Drainage of Lumbar Vertebral Joint, Percutaneous Approach (ICD-10-PCS; 2018-11-10)
PROC: 5A1D70Z Performance of Urinary Filtration, Intermittent, Less than 6 Hours Per Day (ICD-10-PCS; 2018-11-11)
PROC: 5A1D70Z Performance of Urinary Filtration, Intermittent, Less than 6 Hours Per Day (ICD-10-PCS; 2018-11-12)
PROC: 0SG0071 Fusion of Lumbar Vertebral Joint with Autologous Tissue Substitute, Posterior Approach, Posterior Column, Open Approach (ICD-10-PCS; 2018-11-13)
PROC: 0ST20ZZ Resection of Lumbar Vertebral Disc, Open Approach (ICD-10-PCS; 2018-11-13)
PROC: 4A11X4G Monitoring of Peripheral Nervous Electrical Activity, Intraoperative, External Approach (ICD-10-PCS; 2018-11-13)
PROC: 5A1D70Z Performance of Urinary Filtration, Intermittent, Less than 6 Hours Per Day (ICD-10-PCS; 2018-11-14)
PROC: 30233N1 Transfusion of Nonautologous Red Blood Cells into Peripheral Vein, Percutaneous Approach (ICD-10-PCS; principal; 2018-11-15)
PROC: 5A1D70Z Performance of Urinary Filtration, Intermittent, Less than 6 Hours Per Day (ICD-10-PCS; 2018-11-16)
PROC: 5A1D70Z Performance of Urinary Filtration, Intermittent, Less than 6 Hours Per Day (ICD-10-PCS; 2018-11-18)
PROC: 5A1D70Z Performance of Urinary Filtration, Intermittent, Less than 6 Hours Per Day (ICD-10-PCS; 2018-11-20)
DX: A41.9 Sepsis, unspecified organism (principal); N18.6 End stage renal disease; J96.90 Respiratory failure, unspecified, unspecified whether with hypoxia or hypercapnia; M46.26 Osteomyelitis of vertebra, lumbar region; E46 Unspecified protein-calorie malnutrition; G82.20 Paraplegia, unspecified; I13.11 Hypertensive heart and chronic kidney disease without heart failure, with stage 5 chronic kidney disease, or end stage renal disease; B38.89 Other forms of coccidioidomycosis; M46.46 Discitis, unspecified, lumbar region; M48.02 Spinal stenosis, cervical region; M25.78 Osteophyte, vertebrae; I49.3 Ventricular premature depolarization; E11.22 Type 2 diabetes mellitus with diabetic chronic kidney disease; I49.1 Atrial premature depolarization; D63.8 Anemia in other chronic diseases classified elsewhere; D50.9 Iron deficiency anemia, unspecified; E11.69 Type 2 diabetes mellitus with other specified complication; E78.5 Hyperlipidemia, unspecified; J45.909 Unspecified asthma, uncomplicated; M25.551 Pain in right hip; M43.17 Spondylolisthesis, lumbosacral region; I27.20 Pulmonary hypertension, unspecified; Z96.653 Presence of artificial knee joint, bilateral; Z86.010 Personal history of colon polyps; Z90.710 Acquired absence of both cervix and uterus; Z82.49 Family history of ischemic heart disease and other diseases of the circulatory system; Z98.42 Cataract extraction status, left eye; Z99.81 Dependence on supplemental oxygen; Z99.2 Dependence on renal dialysis; Z79.4 Long term (current) use of insulin; Z68.28 Body mass index [BMI] 28.0-28.9, adult; Z88.5 Allergy status to narcotic agent
CPT/HCPCS: 36415; 36573; 36600; 71045; 72100; 72141; 72146; 72148; 74018; 76000; 77012; 80048; 80202; 82375; 82728; 82805; 82962; 83540; 83550; 83735; 84100; 84134; 84478; 84484; 85027; 85384; 85651; 86850; 86900; 86920; 87070; 87075; 87077; 87102; 87116; 87186; 88305; 88311; 88312; 92610; 93005; 93306; 93970; 94002; 94003; 94640; 95863; 95925; 95926; 97116; 97162; 97166; 97530; 97535; A6261; C1713; C1725; J0330; J0690; J0885; J1100; J1170; J1450; J1815; J2248; J2250; J2270; J2370; J2405; J2543; J2704; J2710; J2765; J2920; J3010; J3370; J3490; J7030; J7040; J7042; J7050; J7060; J7121; J7620; J7626; P9016

== ENCOUNTER 2018-11-20 17:45 | Inpatient (IN) | payer MEDICARE, OTHER ==
[~2018-11-20] VITALS: Ht 162.6 cm; Wt 63.5 kg
[~2018-11-20 17:45] MED LIST: AMLO10TA80 PO; FERR324T4 PO; GLIM1TAB2 PO; GLYB5TAB7 PO; LINA5TAB PO; METO-539 PO; PIOG15TA66 PO; SIMV20TA6 PO; TERA5CAP4 PO
[2018-11-20 20:00] VITALS: BP_SYST 118; BP_SYST 134; BP_DIAS 53; BP_DIAS 62
[2018-11-20] MEDS ORDERED: ZOLPIDEM TARTRATE 5MG TABLET PO PRN (20:15)
[2018-11-20] MEDS ORDERED: CLONIDINE 0.1MG TABLET PO PRN (20:15)
[2018-11-20] MEDS ORDERED: DEXTROSE 50% WATER 50ML SYRINGE IV PRN (20:15)
[2018-11-20] MEDS ORDERED: MECLIZINE 25MG TABLET PO PRN (20:15)
[2018-11-20] MEDS ORDERED: DOCUSATE SODIUM 250MG CAPSULE PO PRN (20:15)
[2018-11-20] MEDS ORDERED: IPRATROPIUM/ALBUTEROL 0.5-3(2.5)MG/3ML NEB HHN PRN (20:15)
[2018-11-20] MEDS: BLOOD SUGAR DIAGNOSTIC STRIP TEST SCH (21:30)
[2018-11-20 21:37] VITALS: BP 134/53
[2018-11-20] MEDS: SEVELAMER CARBONATE 800 MG TABLET PO SCH (22:12)
[2018-11-20] MEDS: GABAPENTIN 100MG CAPSULE PO SCH (22:12)
[2018-11-20] MEDS: ATORVASTATIN CALCIUM 20MG TABLET PO SCH (22:12)
[2018-11-20] MEDS: HYDRALAZINE HCL 100MG TABLET PO SCH (22:13)
[2018-11-20] MEDS: IPRATROPIUM/ALBUTEROL 0.5-3(2.5)MG/3ML NEB HHN SCH (22:18)
[2018-11-20] MEDS: INSULIN LISPRO 100 UNITS/ML SUBCUT SCH (22:19)
[2018-11-20] MEDS: METOPROLOL TARTRATE 100MG TABLET PO SCH (23:19)
[2018-11-21] MEDS: IPRATROPIUM/ALBUTEROL 0.5-3(2.5)MG/3ML NEB HHN SCH ×3 (00:08→19:55)
[2018-11-21] MEDS ORDERED: MICAFUNGIN 100 MG in SODIUM CHLORIDE 0.9% 100 ML IV SCH (02:00)
[2018-11-21] MEDS: BLOOD SUGAR DIAGNOSTIC STRIP TEST SCH ×4 (06:23→20:51)
[2018-11-21 07:32] LABS: HEMATOCRIT. 23.4 % (36.0-48.0); HEMOGLOBIN. 7.6 g/dL (12.0-16.0); MEAN CORPUSCULAR HEMOGLOBIN 28.5 pg (28.0-32.0); MEAN CORPUSCULAR VOLUME 87.7 fL (81.0-99.0); PLATELET 289 x1000/uL (130-400); RED BLOOD CELL COUNT 2.67 mill/uL (4.2-5.4); RED CELL DISTRIBUTION WIDTH 16.9 % (11.6-14.6)
[2018-11-21 07:33] LABS: CHLORIDE 105 mEq/L (98-107)
[2018-11-21] MEDS: HYDRALAZINE HCL 100MG TABLET PO SCH ×2 (08:13→20:47)
[2018-11-21 08:14] VITALS: BP 144/62
[2018-11-21] MEDS: LOSARTAN POTASSIUM 100 MG TABLET PO SCH (08:14)
[2018-11-21] MEDS: METOPROLOL TARTRATE 100MG TABLET PO SCH ×2 (08:14→20:47)
[2018-11-21] MEDS: ACETAMINOPHEN 325MG TABLET PO PRN (08:33)
[2018-11-21] MEDS: SEVELAMER CARBONATE 800 MG TABLET PO SCH ×3 (08:33→16:16)
[2018-11-21] MEDS: INSULIN LISPRO 100 UNITS/ML SUBCUT SCH ×4 (08:34→20:51)
[2018-11-21] MEDS ORDERED: NIFEDIPINE XL 60MG TAB PO SCH (09:00)
[2018-11-21] MEDS ORDERED: HYDROCODONE/ACETAMINOPHEN 5/325MG TABLET PO PRN (10:00)
[2018-11-21] MEDS: LACTULOSE 20G/30ML UDC PO SCH ×3 (10:21→17:09)
[2018-11-21] MEDS: HYDROCODONE/ACETAMINOPHEN 5/325MG TABLET PO PRN (14:16)
[2018-11-21] MEDS: GABAPENTIN 100MG CAPSULE PO SCH (16:16)
[2018-11-21 16:30] LABS: PLATELET ESTIMATE NORMAL
[2018-11-21 20:00] VITALS: BP 166/61
[2018-11-21 20:35] VITALS: BP 141/52
[2018-11-21] MEDS: ATORVASTATIN CALCIUM 20MG TABLET PO SCH (20:47)
[2018-11-21] MEDS ORDERED: VANCOMYCIN 1 G PREMIX 200 ML IV SCH (21:00)
[2018-11-22] MEDS ORDERED: VANCOMYCIN 1 G PREMIX 200 ML IV SCH ×2 (00:15→01:00)
[2018-11-22] MEDS: IPRATROPIUM/ALBUTEROL 0.5-3(2.5)MG/3ML NEB HHN SCH ×5 (01:24→21:06)
[2018-11-22] MEDS: HYDROCODONE/ACETAMINOPHEN 5/325MG TABLET PO PRN ×2 (03:24→08:28)
[2018-11-22] MEDS: BLOOD SUGAR DIAGNOSTIC STRIP TEST SCH ×4 (06:13→21:35)
[2018-11-22] MEDS: INSULIN LISPRO 100 UNITS/ML SUBCUT SCH ×4 (06:38→21:46)
[2018-11-22 07:38] LABS: PHOSPHORUS 2.5 mg/dL (2.5-4.9)
[2018-11-22 07:41] LABS: BASOPHILS % 1.3 % (0.0-2.0); EOSINOPHILS % 11.2 % (0.0-5.0); HEMATOCRIT. 25.4 % (36.0-48.0); HEMOGLOBIN. 8.2 g/dL (12.0-16.0); LYMPHOCYTES % 9.8 % (20.0-50.0); MEAN CORPUSCULAR HEMOGLOBIN 28.2 pg (28.0-32.0); MEAN CORPUSCULAR VOLUME 87.5 fL (81.0-99.0); MEAN PLATELET VOLUME 6.9 fl (7.4-10.4); MONOCYTES % 6.8 % (2.0-8.0); NEUTROPHILS % 70.9 % (40.0-76.0); PLATELET 293 x1000/uL (130-400); RED CELL DISTRIBUTION WIDTH 16.5 % (11.6-14.6)
[2018-11-22 08:00] VITALS: BP 147/50
[2018-11-22] MEDS: SEVELAMER CARBONATE 800 MG TABLET PO SCH ×3 (08:27→16:04)
[2018-11-22] MEDS: LOSARTAN POTASSIUM 100 MG TABLET PO SCH (08:27)
[2018-11-22] MEDS: HYDRALAZINE HCL 100MG TABLET PO SCH ×2 (08:28→22:59)
[2018-11-22] MEDS: FLUCONAZOLE 100MG TABLET PO SCH (08:28)
[2018-11-22] MEDS: METOPROLOL TARTRATE 100MG TABLET PO SCH ×2 (08:29→21:33)
[2018-11-22] MEDS: NIFEDIPINE XL 90MG TAB PO SCH (08:29)
[2018-11-22] MEDS: LIDOCAINE 5% PATCH TOP SCH (15:21)
[2018-11-22] MEDS: GABAPENTIN 100MG CAPSULE PO SCH ×2 (15:21→21:34)
[2018-11-22] MEDS: ONDANSETRON HCL 4MG/2ML INJ IV PRN (15:22)
[2018-11-22] MEDS: ACETAMINOPHEN 325MG TABLET PO PRN (16:04)
[2018-11-22] MEDS: DOCUSATE SODIUM 100MG CAPSULE PO SCH (16:04)
[2018-11-22 20:00] VITALS: BP 132/51
[2018-11-22] MEDS: POLYETHYLENE GLYCOL 3350 (17GM) 1 DOSE PACK PO SCH (21:34)
[2018-11-22] MEDS: ATORVASTATIN CALCIUM 20MG TABLET PO SCH (21:35)
[2018-11-23] MEDS: IPRATROPIUM/ALBUTEROL 0.5-3(2.5)MG/3ML NEB HHN SCH ×6 (00:17→20:08)
[2018-11-23] MEDS: BLOOD SUGAR DIAGNOSTIC STRIP TEST SCH ×4 (06:27→21:00)
[2018-11-23] MEDS: GABAPENTIN 100MG CAPSULE PO SCH ×3 (06:28→21:00)
[2018-11-23] MEDS: OXYCODONE HCL 5MG TABLET PO PRN ×3 (06:29→12:18)
[2018-11-23] MEDS: INSULIN LISPRO 100 UNITS/ML SUBCUT SCH ×4 (06:38→21:08)
[2018-11-23 07:18] LABS: CHLORIDE 101 mEq/L (98-107)
[2018-11-23 07:20] LABS: BASOPHILS % 1.9 % (0.0-2.0); HEMATOCRIT. 25.2 % (36.0-48.0); HEMOGLOBIN. 8.1 g/dL (12.0-16.0); LYMPHOCYTES % 10.3 % (20.0-50.0); MEAN CORPUSCULAR VOLUME 87.6 fL (81.0-99.0); MEAN PLATELET VOLUME 6.9 fl (7.4-10.4); NEUTROPHILS % 69.8 % (40.0-76.0); PLATELET 312 x1000/uL (130-400); RED BLOOD CELL COUNT 2.87 mill/uL (4.2-5.4)
[2018-11-23 07:23] LABS: TOTAL IRON BINDING CAPACITY 166 ug/dL (250-450)
[2018-11-23 07:24] LABS: PHOSPHORUS 2.9 mg/dL (2.5-4.9)
[2018-11-23 07:32] LABS: FERRITIN 844 ng/mL (10-291)
[2018-11-23 07:45] LABS: VITAMIN B12 SERUM 1218 pg/mL (211-911)
[2018-11-23 07:46] LABS: FOLIC ACID (FOLATE) SERUM > 20.00 ng/mL (>5.38)
[2018-11-23 08:09] VITALS: BP 117/47
[2018-11-23] MEDS ORDERED: BISACODYL 10MG SUPP PR NR (08:15)
[2018-11-23] MEDS: HYDRALAZINE HCL 100MG TABLET PO SCH ×2 (09:00→21:00)
[2018-11-23] MEDS: METOPROLOL TARTRATE 100MG TABLET PO SCH ×2 (09:00→21:00)
[2018-11-23] MEDS: LOSARTAN POTASSIUM 100 MG TABLET PO SCH (09:00)
[2018-11-23] MEDS: FLUCONAZOLE 100MG TABLET PO SCH (09:19)
[2018-11-23] MEDS: NIFEDIPINE XL 90MG TAB PO SCH (09:19)
[2018-11-23] MEDS: DOCUSATE SODIUM 100MG CAPSULE PO SCH ×2 (09:20→16:04)
[2018-11-23] MEDS: SEVELAMER CARBONATE 800 MG TABLET PO SCH ×3 (09:20→16:04)
[2018-11-23] MEDS: LIDOCAINE 5% PATCH TOP SCH (09:20)
[2018-11-23] MEDS: LACTULOSE 20G/30ML UDC PO SCH ×3 (09:20→16:04)
[2018-11-23] MEDS: ONDANSETRON HCL 4MG/2ML INJ IV PRN (12:17)
[2018-11-23] MEDS ORDERED: LIDOCAINE 5% PATCH TOP SCH (14:15)
[2018-11-23 20:00] VITALS: BP 116/69
[2018-11-23] MEDS: ATORVASTATIN CALCIUM 20MG TABLET PO SCH (20:53)
[2018-11-23] MEDS: POLYETHYLENE GLYCOL 3350 (17GM) 1 DOSE PACK PO SCH (20:53)
[2018-11-24] MEDS: IPRATROPIUM/ALBUTEROL 0.5-3(2.5)MG/3ML NEB HHN SCH ×6 (04:08→21:24)
[2018-11-24] MEDS: EPOETIN ALFA 10000UNITS/ML VIAL SUBCUT SCH (04:52)
[2018-11-24] MEDS: GABAPENTIN 100MG CAPSULE PO SCH ×3 (06:31→21:18)
[2018-11-24] MEDS: BLOOD SUGAR DIAGNOSTIC STRIP TEST SCH ×4 (06:32→21:19)
[2018-11-24] MEDS: TRAMADOL 50MG TABLET PO PRN ×2 (06:32→13:53)
[2018-11-24] MEDS: INSULIN LISPRO 100 UNITS/ML SUBCUT SCH ×4 (06:35→21:00)
[2018-11-24 07:53] LABS: HEMATOCRIT. 23.7 % (36.0-48.0); HEMOGLOBIN. 7.6 g/dL (12.0-16.0); MEAN CORPUSCULAR HEMOGLOBIN 28.3 pg (28.0-32.0); MEAN CORPUSCULAR VOLUME 88.1 fL (81.0-99.0); PLATELET 278 x1000/uL (130-400); RED BLOOD CELL COUNT 2.69 mill/uL (4.2-5.4)
[2018-11-24 07:56] LABS: PHOSPHORUS 2.4 mg/dL (2.5-4.9)
[2018-11-24 08:25] VITALS: BP 126/53
[2018-11-24] MEDS: LIDOCAINE 5% PATCH TOP SCH (08:36)
[2018-11-24] MEDS: LOSARTAN POTASSIUM 100 MG TABLET PO SCH (08:37)
[2018-11-24] MEDS: HYDRALAZINE HCL 100MG TABLET PO SCH ×2 (08:37→21:18)
[2018-11-24] MEDS: SEVELAMER CARBONATE 800 MG TABLET PO SCH (08:37)
[2018-11-24] MEDS: NIFEDIPINE XL 90MG TAB PO SCH (08:37)
[2018-11-24] MEDS: DOCUSATE SODIUM 100MG CAPSULE PO SCH ×2 (08:38→16:47)
[2018-11-24] MEDS: METOPROLOL TARTRATE 100MG TABLET PO SCH ×2 (08:38→22:00)
[2018-11-24] MEDS: FLUCONAZOLE 100MG TABLET PO SCH (08:47)
[2018-11-24] MEDS: ACETAMINOPHEN 325MG TABLET PO PRN (08:47)
[2018-11-24] MEDS ORDERED: BISACODYL 10MG SUPP PR ONE (13:30)
[2018-11-24] MEDS ORDERED: BISACODYL 10MG SUPP PR PRN (13:30)
[2018-11-24] MEDS ORDERED: SODIUM POLYSTYRENE SULFONATE 15 G/60 ML BOT PO NR (17:00)
[2018-11-24 20:00] VITALS: BP 132/54
[2018-11-24] MEDS: POLYETHYLENE GLYCOL 3350 (17GM) 1 DOSE PACK PO SCH (21:00)
[2018-11-24] MEDS: ATORVASTATIN CALCIUM 20MG TABLET PO SCH (21:18)
[2018-11-25] MEDS: IPRATROPIUM/ALBUTEROL 0.5-3(2.5)MG/3ML NEB HHN SCH ×6 (00:20→21:30)
[2018-11-25] MEDS: BLOOD SUGAR DIAGNOSTIC STRIP TEST SCH ×4 (06:27→20:41)
[2018-11-25] MEDS: GABAPENTIN 100MG CAPSULE PO SCH ×3 (06:27→21:31)
[2018-11-25] MEDS: INSULIN LISPRO 100 UNITS/ML SUBCUT SCH ×4 (06:44→21:00)
[2018-11-25 08:00] VITALS: BP 120/42
[2018-11-25 08:08] LABS: PLATELET ESTIMATE NORMAL
[2018-11-25] MEDS: TRAMADOL 50MG TABLET PO PRN ×2 (08:23→21:31)
[2018-11-25] MEDS: LIDOCAINE 5% PATCH TOP SCH (09:21)
[2018-11-25] MEDS: NIFEDIPINE XL 90MG TAB PO SCH (09:22)
[2018-11-25] MEDS: HYDRALAZINE HCL 100MG TABLET PO SCH ×2 (09:22→20:35)
[2018-11-25] MEDS: DOCUSATE SODIUM 100MG CAPSULE PO SCH ×2 (09:22→16:15)
[2018-11-25] MEDS: METOPROLOL TARTRATE 100MG TABLET PO SCH ×2 (09:23→20:35)
[2018-11-25] MEDS: FLUCONAZOLE 100MG TABLET PO SCH (09:23)
[2018-11-25] MEDS: LOSARTAN POTASSIUM 100 MG TABLET PO SCH (09:24)
[2018-11-25 09:30] LABS: HEMOGLOBIN. 7.9 g/dL (12.0-16.0); MEAN CORPUSCULAR HEMOGLOBIN 27.7 pg (28.0-32.0); MEAN CORPUSCULAR VOLUME 87.9 fL (81.0-99.0); MEAN PLATELET VOLUME 6.8 fl (7.4-10.4); PLATELET 331 x1000/uL (130-400); RED BLOOD CELL COUNT 2.84 mill/uL (4.2-5.4)
[2018-11-25 09:46] LABS: PHOSPHORUS 3.1 mg/dL (2.5-4.9)
[2018-11-25 12:05] LABS: PLATELET ESTIMATE NORMAL
[2018-11-25 13:12] VITALS: BP 120/48
[2018-11-25 20:00] VITALS: BP 111/50
[2018-11-25] MEDS: POLYETHYLENE GLYCOL 3350 (17GM) 1 DOSE PACK PO SCH (20:34)
[2018-11-25] MEDS: EPOETIN ALFA 10000UNITS/ML VIAL SUBCUT SCH (20:34)
[2018-11-25] MEDS: ATORVASTATIN CALCIUM 20MG TABLET PO SCH (20:34)
[2018-11-26] MEDS: IPRATROPIUM/ALBUTEROL 0.5-3(2.5)MG/3ML NEB HHN SCH ×5 (00:10→21:31)
[2018-11-26 06:17] LABS: HEMOGLOBIN. 8.6 g/dL (12.0-16.0); MEAN CORPUSCULAR HEMOGLOBIN 27.2 pg (28.0-32.0); MEAN CORPUSCULAR VOLUME 88.5 fL (81.0-99.0); MEAN PLATELET VOLUME 6.7 fl (7.4-10.4); PLATELET 381 x1000/uL (130-400); RED BLOOD CELL COUNT 3.17 mill/uL (4.2-5.4); RED CELL DISTRIBUTION WIDTH 16.9 % (11.6-14.6)
[2018-11-26] MEDS: GABAPENTIN 100MG CAPSULE PO SCH ×3 (06:24→21:19)
[2018-11-26] MEDS: BLOOD SUGAR DIAGNOSTIC STRIP TEST SCH ×4 (06:27→21:27)
[2018-11-26] MEDS: INSULIN LISPRO 100 UNITS/ML SUBCUT SCH ×4 (06:34→21:27)
[2018-11-26 08:00] VITALS: BP 128/51
[2018-11-26] MEDS: HYDRALAZINE HCL 100MG TABLET PO SCH ×2 (09:00→21:00)
[2018-11-26] MEDS: METOPROLOL TARTRATE 100MG TABLET PO SCH ×2 (09:00→21:00)
[2018-11-26] MEDS: NIFEDIPINE XL 90MG TAB PO SCH (09:00)
[2018-11-26] MEDS: LIDOCAINE 5% PATCH TOP SCH (09:00)
[2018-11-26] MEDS: DOCUSATE SODIUM 100MG CAPSULE PO SCH ×2 (09:00→17:12)
[2018-11-26] MEDS: FLUCONAZOLE 100MG TABLET PO SCH (09:00)
[2018-11-26] MEDS: LOSARTAN POTASSIUM 100 MG TABLET PO SCH (09:00)
[2018-11-26 10:30] LABS: PLATELET ESTIMATE NORMAL
[2018-11-26] MEDS: ONDANSETRON HCL 4MG/2ML INJ IV PRN (18:41)
[2018-11-26 20:00] VITALS: BP 123/55
[2018-11-26] MEDS: ATORVASTATIN CALCIUM 20MG TABLET PO SCH (21:19)
[2018-11-26] MEDS: POLYETHYLENE GLYCOL 3350 (17GM) 1 DOSE PACK PO SCH (21:20)
[2018-11-27] MEDS: IPRATROPIUM/ALBUTEROL 0.5-3(2.5)MG/3ML NEB HHN SCH ×6 (01:25→21:08)
[2018-11-27] MEDS: BLOOD SUGAR DIAGNOSTIC STRIP TEST SCH ×4 (05:57→21:46)
[2018-11-27] MEDS: GABAPENTIN 100MG CAPSULE PO SCH ×3 (05:57→21:36)
[2018-11-27] MEDS: INSULIN LISPRO 100 UNITS/ML SUBCUT SCH ×4 (05:58→21:45)
[2018-11-27 08:28] VITALS: BP 145/59
[2018-11-27] MEDS: DOCUSATE SODIUM 100MG CAPSULE PO SCH ×2 (09:17→17:00)
[2018-11-27] MEDS: LOSARTAN POTASSIUM 100 MG TABLET PO SCH (09:17)
[2018-11-27] MEDS: METOPROLOL TARTRATE 100MG TABLET PO SCH ×2 (09:18→21:00)
[2018-11-27] MEDS: TRAMADOL 50MG TABLET PO PRN (09:19)
[2018-11-27] MEDS: LIDOCAINE 5% PATCH TOP SCH ×2 (09:23→11:51)
[2018-11-27] MEDS: FLUCONAZOLE 100MG TABLET PO SCH (09:23)
[2018-11-27] MEDS: NIFEDIPINE XL 90MG TAB PO SCH (10:28)
[2018-11-27] MEDS: HYDRALAZINE HCL 100MG TABLET PO SCH ×2 (10:28→21:00)
[2018-11-27] MEDS: ACETAMINOPHEN 325MG TABLET PO PRN (11:49)
[2018-11-27] MEDS: METHYL SALICYLATE/MENTHOL CREAM 85GM TOP SCH ×2 (13:11→18:44)
[2018-11-27] MEDS ORDERED: BISACODYL 5MG TABLET PO PRN (15:00)
[2018-11-27 20:00] VITALS: BP 120/47
[2018-11-27] MEDS: ATORVASTATIN CALCIUM 20MG TABLET PO SCH (21:36)
[2018-11-27] MEDS: POLYETHYLENE GLYCOL 3350 (17GM) 1 DOSE PACK PO SCH (21:36)
[2018-11-28] MEDS: METHYL SALICYLATE/MENTHOL CREAM 85GM TOP SCH ×3 (00:13→17:10)
[2018-11-28] MEDS: IPRATROPIUM/ALBUTEROL 0.5-3(2.5)MG/3ML NEB HHN SCH ×6 (00:30→21:14)
[2018-11-28 04:12] LABS: 25-HYDROXY VITAMIN D3 35 ng/mL (.)
[2018-11-28] MEDS: INSULIN LISPRO 100 UNITS/ML SUBCUT SCH ×4 (05:56→21:00)
[2018-11-28] MEDS: BLOOD SUGAR DIAGNOSTIC STRIP TEST SCH ×4 (05:56→21:00)
[2018-11-28] MEDS: GABAPENTIN 100MG CAPSULE PO SCH ×3 (05:56→22:09)
[2018-11-28 06:53] LABS: HEMOGLOBIN. 7.3 g/dL (12.0-16.0); MEAN CORPUSCULAR VOLUME 88.2 fL (81.0-99.0); MEAN PLATELET VOLUME 6.7 fl (7.4-10.4); PLATELET 302 x1000/uL (130-400); RED BLOOD CELL COUNT 2.61 mill/uL (4.2-5.4); RED CELL DISTRIBUTION WIDTH 16.9 % (11.6-14.6)
[2018-11-28 06:57] LABS: PHOSPHORUS 3.2 mg/dL (2.5-4.9)
[2018-11-28 08:21] VITALS: BP 135/57
[2018-11-28] MEDS: FLUCONAZOLE 100MG TABLET PO SCH (08:44)
[2018-11-28] MEDS: NIFEDIPINE XL 90MG TAB PO SCH (08:45)
[2018-11-28] MEDS: TRAMADOL 50MG TABLET PO PRN (08:45)
[2018-11-28] MEDS: DOCUSATE SODIUM 100MG CAPSULE PO SCH ×2 (08:45→16:35)
[2018-11-28] MEDS: HYDRALAZINE HCL 100MG TABLET PO SCH (08:45)
[2018-11-28] MEDS: METOPROLOL TARTRATE 100MG TABLET PO SCH ×2 (08:45→22:10)
[2018-11-28] MEDS: LIDOCAINE 5% PATCH TOP SCH ×2 (08:46)
[2018-11-28] MEDS: LOSARTAN POTASSIUM 100 MG TABLET PO SCH (08:51)
[2018-11-28] MEDS: ACETAMINOPHEN 325MG TABLET PO PRN (12:37)
[2018-11-28] MEDS: ACETAMINOPHEN 500MG TABLET PO SCH ×2 (13:42→22:10)
[2018-11-28 16:43] LABS: PLATELET ESTIMATE NORMAL
[2018-11-28 20:00] VITALS: BP 138/82
[2018-11-28] MEDS: ATORVASTATIN CALCIUM 20MG TABLET PO SCH (22:09)
[2018-11-28] MEDS: POLYETHYLENE GLYCOL 3350 (17GM) 1 DOSE PACK PO SCH (22:12)
[2018-11-28] MEDS: EPOETIN ALFA 10000UNITS/ML VIAL SUBCUT SCH (22:14)
[2018-11-29] MEDS: IPRATROPIUM/ALBUTEROL 0.5-3(2.5)MG/3ML NEB HHN SCH ×7 (00:36→23:39)
[2018-11-29] MEDS: HYDRALAZINE HCL 100MG TABLET PO SCH ×3 (01:00→20:12)
[2018-11-29] MEDS: METHYL SALICYLATE/MENTHOL CREAM 85GM TOP SCH ×5 (01:03→23:42)
[2018-11-29] MEDS: ACETAMINOPHEN 500MG TABLET PO SCH ×3 (05:42→21:03)
[2018-11-29] MEDS: GABAPENTIN 100MG CAPSULE PO SCH ×3 (05:42→21:03)
[2018-11-29] MEDS: BLOOD SUGAR DIAGNOSTIC STRIP TEST SCH ×4 (05:59→20:12)
[2018-11-29 07:36] LABS: HEMATOCRIT. 23.6 % (36.0-48.0); HEMOGLOBIN. 7.3 g/dL (12.0-16.0); MEAN CORPUSCULAR HEMOGLOBIN 27.2 pg (28.0-32.0); MEAN PLATELET VOLUME 6.8 fl (7.4-10.4); PLATELET 276 x1000/uL (130-400); RED BLOOD CELL COUNT 2.68 mill/uL (4.2-5.4); RED CELL DISTRIBUTION WIDTH 16.7 % (11.6-14.6)
[2018-11-29 07:54] VITALS: BP 145/52
[2018-11-29 08:02] VITALS: BP 145/52
[2018-11-29] MEDS: FLUCONAZOLE 100MG TABLET PO SCH (08:16)
[2018-11-29] MEDS: METOPROLOL TARTRATE 100MG TABLET PO SCH ×2 (08:16→20:12)
[2018-11-29] MEDS: LOSARTAN POTASSIUM 100 MG TABLET PO SCH (08:16)
[2018-11-29] MEDS: NIFEDIPINE XL 90MG TAB PO SCH (08:17)
[2018-11-29] MEDS: DOCUSATE SODIUM 100MG CAPSULE PO SCH ×2 (08:17→16:48)
[2018-11-29] MEDS: INSULIN LISPRO 100 UNITS/ML SUBCUT SCH ×4 (08:18→20:21)
[2018-11-29] MEDS: LIDOCAINE 5% PATCH TOP SCH ×2 (08:18)
[2018-11-29] MEDS ORDERED: PIPERACILLIN/TAZ 3.375G PREMIX 50 ML IV SCH (11:00)
[2018-11-29] MEDS: PIPERACILLIN/TAZ 2.25G PREMIX 50 ML IV SCH ×3 (12:00→20:01)
[2018-11-29 14:22] LABS: PLATELET ESTIMATE NORMAL
[2018-11-29] MEDS ORDERED: MINERAL OIL ENEMA 133ML PR NR (14:45)
[2018-11-29] MEDS: LACTULOSE 20G/30ML UDC PO SCH ×3 (16:48→20:11)
[2018-11-29 20:00] VITALS: BP 170/56
[2018-11-29] MEDS: ATORVASTATIN CALCIUM 20MG TABLET PO SCH (20:12)
[2018-11-29] MEDS: POLYETHYLENE GLYCOL 3350 (17GM) 1 DOSE PACK PO SCH (20:12)
[2018-11-30] MEDS: PIPERACILLIN/TAZ 2.25G PREMIX 50 ML IV SCH ×3 (03:16→20:00)
[2018-11-30] MEDS: IPRATROPIUM/ALBUTEROL 0.5-3(2.5)MG/3ML NEB HHN SCH ×4 (03:19→21:13)
[2018-11-30] MEDS: GABAPENTIN 100MG CAPSULE PO SCH ×3 (05:46→21:07)
[2018-11-30] MEDS: ACETAMINOPHEN 500MG TABLET PO SCH ×3 (05:46→21:07)
[2018-11-30] MEDS: METHYL SALICYLATE/MENTHOL CREAM 85GM TOP SCH ×3 (05:46→17:16)
[2018-11-30] MEDS: BLOOD SUGAR DIAGNOSTIC STRIP TEST SCH ×4 (05:47→21:08)
[2018-11-30 06:25] LABS: CLARITY URINE TURBID (CLEAR); COLOR URINE DARK YELLOW (YELLOW); KETONES URINE TRACE (NEGATIVE); LEUKOCYTE ESTERASE URINE 3+ (NEGATIVE); NITRITE URINE NEGATIVE (NEGATIVE); OCCULT BLOOD URINE NEGATIVE (NEGATIVE); PROTEIN URINE 2+ (NEGATIVE); UROBILINOGEN URINE 0.2 E.U./dL (0.2-1.0)
[2018-11-30] MEDS: INSULIN LISPRO 100 UNITS/ML SUBCUT SCH ×4 (06:25→21:17)
[2018-11-30 07:11] LABS: HEMATOCRIT. 24.8 % (36.0-48.0); HEMOGLOBIN. 7.8 g/dL (12.0-16.0); MEAN CORPUSCULAR HEMOGLOBIN 28.2 pg (28.0-32.0); MEAN CORPUSCULAR VOLUME 88.9 fL (81.0-99.0); MEAN PLATELET VOLUME 6.8 fl (7.4-10.4); PLATELET 294 x1000/uL (130-400); RED BLOOD CELL COUNT 2.78 mill/uL (4.2-5.4); RED CELL DISTRIBUTION WIDTH 17.2 % (11.6-14.6)
[2018-11-30 08:00] VITALS: BP 105/42
[2018-11-30] MEDS ORDERED: BARIUM SULFATE 176 GM SUSP.RECON ONE (08:47)
[2018-11-30] MEDS: BISACODYL 10MG SUPP PR SCH ×2 (09:00→10:20)
[2018-11-30] MEDS: HYDRALAZINE HCL 100MG TABLET PO SCH ×2 (09:00→21:00)
[2018-11-30] MEDS: NIFEDIPINE XL 90MG TAB PO SCH (09:00)
[2018-11-30] MEDS: METOPROLOL TARTRATE 100MG TABLET PO SCH ×2 (09:00→21:00)
[2018-11-30] MEDS: LOSARTAN POTASSIUM 100 MG TABLET PO SCH (09:00)
[2018-11-30] MEDS: LIDOCAINE 5% PATCH TOP SCH ×2 (10:16)
[2018-11-30] MEDS: DOCUSATE SODIUM 100MG CAPSULE PO SCH ×2 (10:18→16:55)
[2018-11-30] MEDS: ACETAMINOPHEN 325MG TABLET PO PRN (10:25)
[2018-11-30 13:57] LABS: NUCLEATED RED BLOOD CELLS 1 /100 WBC; PLATELET ESTIMATE NORMAL
[2018-11-30 20:00] VITALS: BP 157/66
[2018-11-30] MEDS: POLYETHYLENE GLYCOL 3350 (17GM) 1 DOSE PACK PO SCH (21:00)
[2018-11-30] MEDS: ATORVASTATIN CALCIUM 20MG TABLET PO SCH (21:07)
[2018-12-01] MEDS: IPRATROPIUM/ALBUTEROL 0.5-3(2.5)MG/3ML NEB HHN SCH ×4 (00:37→20:11)
[2018-12-01] MEDS: METHYL SALICYLATE/MENTHOL CREAM 85GM TOP SCH ×4 (00:51→17:06)
[2018-12-01] MEDS: PIPERACILLIN/TAZ 2.25G PREMIX 50 ML IV SCH (04:31)
[2018-12-01] MEDS: BLOOD SUGAR DIAGNOSTIC STRIP TEST SCH ×4 (06:05→20:57)
[2018-12-01] MEDS: GABAPENTIN 100MG CAPSULE PO SCH ×3 (06:05→21:10)
[2018-12-01] MEDS: ACETAMINOPHEN 500MG TABLET PO SCH ×3 (06:05→21:10)
[2018-12-01] MEDS: INSULIN LISPRO 100 UNITS/ML SUBCUT SCH ×4 (06:11→21:09)
[2018-12-01 07:40] LABS: HEMOGLOBIN. 7.7 g/dL (12.0-16.0); MEAN CORPUSCULAR HEMOGLOBIN 27.7 pg (28.0-32.0); MEAN CORPUSCULAR VOLUME 86.8 fL (81.0-99.0); MEAN PLATELET VOLUME 6.8 fl (7.4-10.4); PLATELET 261 x1000/uL (130-400); RED BLOOD CELL COUNT 2.76 mill/uL (4.2-5.4); RED CELL DISTRIBUTION WIDTH 17.3 % (11.6-14.6)
[2018-12-01 08:00] VITALS: BP 195/85
[2018-12-01 08:03] LABS: PHOSPHORUS 1.9 mg/dL (2.5-4.9)
[2018-12-01] MEDS: LIDOCAINE 5% PATCH TOP SCH ×2 (08:31→08:34)
[2018-12-01] MEDS: NIFEDIPINE XL 90MG TAB PO SCH (08:32)
[2018-12-01] MEDS: LOSARTAN POTASSIUM 100 MG TABLET PO SCH (08:32)
[2018-12-01] MEDS: HYDRALAZINE HCL 100MG TABLET PO SCH ×2 (08:32→16:37)
[2018-12-01] MEDS: METOPROLOL TARTRATE 100MG TABLET PO SCH ×2 (08:33→21:03)
[2018-12-01] MEDS: DOCUSATE SODIUM 100MG CAPSULE PO SCH ×2 (08:38→17:00)
[2018-12-01] MEDS: BISACODYL 10MG SUPP PR SCH (08:38)
[2018-12-01] MEDS ORDERED: POTASSIUM CHLORIDE 20MEQ TABLET SR PO SCH (09:45)
[2018-12-01] MEDS ORDERED: TRAMADOL 50MG TABLET PO PRN (10:45)
[2018-12-01 12:31] LABS: PLATELET ESTIMATE NORMAL
[2018-12-01] MEDS: OXYCODONE HCL 5MG TABLET PO PRN (13:06)
[2018-12-01] MEDS: FLUCONAZOLE 100MG TABLET PO SCH (13:41)
[2018-12-01] MEDS: POTASSIUM-SODIUM PHOSPHATE POWDER PACKET PO SCH (16:32)
[2018-12-01] MEDS: SPIRONOLACTONE 25MG TABLET PO SCH (16:36)
[2018-12-01 20:00] VITALS: BP 135/53
[2018-12-01] MEDS: ATORVASTATIN CALCIUM 20MG TABLET PO SCH (20:56)
[2018-12-01] MEDS: POLYETHYLENE GLYCOL 3350 (17GM) 1 DOSE PACK PO SCH (20:57)
[2018-12-02] MEDS: HYDRALAZINE HCL 100MG TABLET PO SCH ×4 (01:26→17:00)
[2018-12-02] MEDS: METHYL SALICYLATE/MENTHOL CREAM 85GM TOP SCH ×4 (01:26→17:03)
[2018-12-02] MEDS: IPRATROPIUM/ALBUTEROL 0.5-3(2.5)MG/3ML NEB HHN SCH ×6 (01:41→21:50)
[2018-12-02] MEDS: OXYCODONE HCL 5MG TABLET PO PRN ×2 (02:45→17:02)
[2018-12-02] MEDS: ACETAMINOPHEN 500MG TABLET PO SCH ×3 (06:20→22:30)
[2018-12-02] MEDS: BLOOD SUGAR DIAGNOSTIC STRIP TEST SCH ×4 (06:20→21:00)
[2018-12-02] MEDS: GABAPENTIN 100MG CAPSULE PO SCH ×3 (06:20→22:30)
[2018-12-02] MEDS: INSULIN LISPRO 100 UNITS/ML SUBCUT SCH ×4 (06:35→21:00)
[2018-12-02 08:00] VITALS: BP 144/54
[2018-12-02 08:20] LABS: HEMOGLOBIN. 8.3 g/dL (12.0-16.0); MEAN CORPUSCULAR HEMOGLOBIN 28.1 pg (28.0-32.0); MEAN CORPUSCULAR VOLUME 88.2 fL (81.0-99.0); MEAN PLATELET VOLUME 7.3 fl (7.4-10.4); PLATELET 237 x1000/uL (130-400); RED BLOOD CELL COUNT 2.95 mill/uL (4.2-5.4); RED CELL DISTRIBUTION WIDTH 17.6 % (11.6-14.6)
[2018-12-02 08:58] LABS: PHOSPHORUS 3.3 mg/dL (2.5-4.9)
[2018-12-02] MEDS: DOCUSATE SODIUM 100MG CAPSULE PO SCH ×2 (09:00→17:00)
[2018-12-02] MEDS: LOSARTAN POTASSIUM 100 MG TABLET PO SCH ×2 (09:00→09:09)
[2018-12-02] MEDS: SPIRONOLACTONE 25MG TABLET PO SCH ×2 (09:00→09:09)
[2018-12-02] MEDS: BISACODYL 10MG SUPP PR SCH (09:00)
[2018-12-02] MEDS: METOPROLOL TARTRATE 100MG TABLET PO SCH ×3 (09:00→21:00)
[2018-12-02] MEDS: NIFEDIPINE XL 90MG TAB PO SCH ×2 (09:00→09:08)
[2018-12-02] MEDS: LIDOCAINE 5% PATCH TOP SCH ×2 (09:07→09:31)
[2018-12-02] MEDS: POTASSIUM-SODIUM PHOSPHATE POWDER PACKET PO SCH ×2 (09:07→16:50)
[2018-12-02] MEDS: FLUCONAZOLE 100MG TABLET PO SCH (09:08)
[2018-12-02 13:46] LABS: PLATELET ESTIMATE NORMAL
[2018-12-02 20:00] VITALS: BP 135/56
[2018-12-02] MEDS: POLYETHYLENE GLYCOL 3350 (17GM) 1 DOSE PACK PO SCH (21:00)
[2018-12-02] MEDS: ATORVASTATIN CALCIUM 20MG TABLET PO SCH (22:30)
[2018-12-02] MEDS: EPOETIN ALFA 10000UNITS/ML VIAL SUBCUT SCH (22:30)
[2018-12-03] MEDS: HYDRALAZINE HCL 100MG TABLET PO SCH ×3 (00:52→16:57)
[2018-12-03] MEDS: IPRATROPIUM/ALBUTEROL 0.5-3(2.5)MG/3ML NEB HHN SCH ×4 (04:00→12:00)
[2018-12-03] MEDS: BLOOD SUGAR DIAGNOSTIC STRIP TEST SCH ×2 (06:16→11:32)
[2018-12-03] MEDS: GABAPENTIN 100MG CAPSULE PO SCH ×3 (06:16→21:43)
[2018-12-03] MEDS: ACETAMINOPHEN 500MG TABLET PO SCH ×3 (06:16→21:43)
[2018-12-03] MEDS: METHYL SALICYLATE/MENTHOL CREAM 85GM TOP SCH ×4 (06:18→17:04)
[2018-12-03] MEDS: INSULIN LISPRO 100 UNITS/ML SUBCUT SCH ×2 (06:25→12:40)
[2018-12-03 07:52] VITALS: BP 163/51
[2018-12-03] MEDS: LOSARTAN POTASSIUM 100 MG TABLET PO SCH (08:44)
[2018-12-03] MEDS: POTASSIUM-SODIUM PHOSPHATE POWDER PACKET PO SCH (08:44)
[2018-12-03] MEDS: NIFEDIPINE XL 90MG TAB PO SCH (08:45)
[2018-12-03] MEDS: METOPROLOL TARTRATE 100MG TABLET PO SCH ×2 (08:46→21:43)
[2018-12-03] MEDS: FLUCONAZOLE 100MG TABLET PO SCH (08:46)
[2018-12-03] MEDS: SPIRONOLACTONE 25MG TABLET PO SCH (08:46)
[2018-12-03] MEDS: LIDOCAINE 5% PATCH TOP SCH ×2 (08:47)
[2018-12-03] MEDS: DOCUSATE SODIUM 100MG CAPSULE PO SCH ×2 (08:53→17:00)
[2018-12-03] MEDS: OXYCODONE HCL 5MG TABLET PO PRN ×2 (08:57→16:57)
[2018-12-03] MEDS ORDERED: CELECOXIB 200MG CAPSULE PO NR (13:10)
[2018-12-03] MEDS: LINAGLIPTIN 5MG TABLET PO SCH (13:23)
[2018-12-03 20:00] VITALS: BP 146/65
[2018-12-03] MEDS: POLYETHYLENE GLYCOL 3350 (17GM) 1 DOSE PACK PO SCH (21:00)
[2018-12-03] MEDS: ATORVASTATIN CALCIUM 20MG TABLET PO SCH (21:42)
[2018-12-04] MEDS: METHYL SALICYLATE/MENTHOL CREAM 85GM TOP SCH ×5 (00:07→21:08)
[2018-12-04] MEDS: HYDRALAZINE HCL 100MG TABLET PO SCH ×2 (01:00→08:17)
[2018-12-04] MEDS: GABAPENTIN 100MG CAPSULE PO SCH ×3 (06:01→21:07)
[2018-12-04] MEDS: ACETAMINOPHEN 500MG TABLET PO SCH (06:01)
[2018-12-04 07:19] LABS: PHOSPHORUS 3.4 mg/dL (2.5-4.9)
[2018-12-04 07:21] LABS: HEMATOCRIT. 27.1 % (36.0-48.0); HEMOGLOBIN. 8.8 g/dL (12.0-16.0); MEAN CORPUSCULAR HEMOGLOBIN 28.5 pg (28.0-32.0); MEAN CORPUSCULAR VOLUME 88.1 fL (81.0-99.0); MEAN PLATELET VOLUME 6.5 fl (7.4-10.4); PLATELET 322 x1000/uL (130-400); RED BLOOD CELL COUNT 3.08 mill/uL (4.2-5.4); RED CELL DISTRIBUTION WIDTH 17.8 % (11.6-14.6)
[2018-12-04 08:00] VITALS: BP 104/41
[2018-12-04] MEDS: METOPROLOL TARTRATE 100MG TABLET PO SCH ×2 (08:13→21:08)
[2018-12-04] MEDS: NIFEDIPINE XL 90MG TAB PO SCH (08:14)
[2018-12-04] MEDS: SPIRONOLACTONE 25MG TABLET PO SCH (08:18)
[2018-12-04] MEDS: LOSARTAN POTASSIUM 100 MG TABLET PO SCH (08:19)
[2018-12-04] MEDS: DOCUSATE SODIUM 100MG CAPSULE PO SCH ×2 (08:19→16:23)
[2018-12-04] MEDS: LINAGLIPTIN 5MG TABLET PO SCH (08:19)
[2018-12-04] MEDS: FLUCONAZOLE 100MG TABLET PO SCH (08:19)
[2018-12-04] MEDS: LIDOCAINE 5% PATCH TOP SCH ×2 (08:19→08:20)
[2018-12-04] MEDS: OXYCODONE HCL 5MG TABLET PO PRN (11:10)
[2018-12-04] MEDS: OXYCODONE HCL 5MG TABLET PO SCH ×2 (13:00→16:22)
[2018-12-04 14:55] LABS: PLATELET ESTIMATE NORMAL
[2018-12-04] MEDS: HYDRALAZINE HCL 50MG TABLET PO SCH (16:25)
[2018-12-04 20:00] VITALS: BP 140/69
[2018-12-04] MEDS: POLYETHYLENE GLYCOL 3350 (17GM) 1 DOSE PACK PO SCH (21:00)
[2018-12-04] MEDS: ATORVASTATIN CALCIUM 20MG TABLET PO SCH (21:07)
[2018-12-05] MEDS: HYDRALAZINE HCL 50MG TABLET PO SCH ×3 (01:00→16:44)
[2018-12-05] MEDS: OXYCODONE HCL 5MG TABLET PO PRN (04:31)
[2018-12-05] MEDS: METHYL SALICYLATE/MENTHOL CREAM 85GM TOP SCH ×3 (05:40→17:05)
[2018-12-05] MEDS: GABAPENTIN 100MG CAPSULE PO SCH ×3 (05:40→21:13)
[2018-12-05 07:41] LABS: HEMATOCRIT. 25.7 % (36.0-48.0); HEMOGLOBIN. 8.3 g/dL (12.0-16.0); MEAN CORPUSCULAR HEMOGLOBIN 28.7 pg (28.0-32.0); MEAN CORPUSCULAR VOLUME 89.1 fL (81.0-99.0); MEAN PLATELET VOLUME 6.6 fl (7.4-10.4); PLATELET 285 x1000/uL (130-400); RED BLOOD CELL COUNT 2.88 mill/uL (4.2-5.4)
[2018-12-05 08:00] VITALS: BP 142/58
[2018-12-05] MEDS: LIDOCAINE 5% PATCH TOP SCH ×2 (08:35)
[2018-12-05] MEDS: OXYCODONE HCL 5MG TABLET PO SCH ×3 (08:35→16:44)
[2018-12-05] MEDS: DOCUSATE SODIUM 100MG CAPSULE PO SCH ×2 (08:41→16:47)
[2018-12-05] MEDS: METOPROLOL TARTRATE 100MG TABLET PO SCH ×2 (08:41→21:15)
[2018-12-05] MEDS: LOSARTAN POTASSIUM 100 MG TABLET PO SCH (08:41)
[2018-12-05] MEDS: FLUCONAZOLE 100MG TABLET PO SCH (08:41)
[2018-12-05] MEDS: SPIRONOLACTONE 25MG TABLET PO SCH (08:41)
[2018-12-05] MEDS: LINAGLIPTIN 5MG TABLET PO SCH (08:42)
[2018-12-05] MEDS: NIFEDIPINE XL 90MG TAB PO SCH (08:42)
[2018-12-05 09:27] LABS: PHOSPHORUS 4.4 mg/dL (2.5-4.9)
[2018-12-05 13:15] LABS: PLATELET ESTIMATE NORMAL
[2018-12-05 20:00] VITALS: BP 168/63
[2018-12-05] MEDS: POLYETHYLENE GLYCOL 3350 (17GM) 1 DOSE PACK PO SCH (21:00)
[2018-12-05] MEDS: ATORVASTATIN CALCIUM 20MG TABLET PO SCH (21:14)
[2018-12-05] MEDS: EPOETIN ALFA 10000UNITS/ML VIAL SUBCUT SCH (21:15)
[2018-12-06] MEDS: HYDRALAZINE HCL 50MG TABLET PO SCH ×3 (01:00→17:07)
[2018-12-06] MEDS: METHYL SALICYLATE/MENTHOL CREAM 85GM TOP SCH ×4 (05:35→17:07)
[2018-12-06] MEDS: GABAPENTIN 100MG CAPSULE PO SCH ×3 (05:35→21:15)
[2018-12-06 07:58] LABS: HEMATOCRIT. 26.6 % (36.0-48.0); HEMOGLOBIN. 8.3 g/dL (12.0-16.0); MEAN CORPUSCULAR HEMOGLOBIN 28.5 pg (28.0-32.0); MEAN CORPUSCULAR VOLUME 90.9 fL (81.0-99.0); MEAN PLATELET VOLUME 6.7 fl (7.4-10.4); PLATELET 262 x1000/uL (130-400); RED BLOOD CELL COUNT 2.93 mill/uL (4.2-5.4); RED CELL DISTRIBUTION WIDTH 18.3 % (11.6-14.6)
[2018-12-06 08:17] VITALS: BP 180/69
[2018-12-06 08:35] LABS: PHOSPHORUS 3.6 mg/dL (2.5-4.9)
[2018-12-06] MEDS: OXYCODONE HCL 5MG TABLET PO PRN (08:51)
[2018-12-06] MEDS: SPIRONOLACTONE 25MG TABLET PO SCH (08:52)
[2018-12-06] MEDS: METOPROLOL TARTRATE 100MG TABLET PO SCH ×2 (08:52→21:15)
[2018-12-06] MEDS: FLUCONAZOLE 100MG TABLET PO SCH (08:52)
[2018-12-06] MEDS: LINAGLIPTIN 5MG TABLET PO SCH (08:53)
[2018-12-06] MEDS: LIDOCAINE 5% PATCH TOP SCH ×2 (08:56)
[2018-12-06] MEDS: OXYCODONE HCL 5MG TABLET PO SCH ×3 (09:00→17:00)
[2018-12-06] MEDS: DOCUSATE SODIUM 100MG CAPSULE PO SCH ×2 (09:00→17:07)
[2018-12-06] MEDS: LOSARTAN POTASSIUM 100 MG TABLET PO SCH (09:37)
[2018-12-06] MEDS: NIFEDIPINE XL 90MG TAB PO SCH (09:37)
[2018-12-06 10:06] LABS: PLATELET ESTIMATE NORMAL
[2018-12-06] MEDS: TRAMADOL 50MG TABLET PO PRN (11:31)
[2018-12-06] MEDS ORDERED: OXYCODONE HCL 5MG TABLET PO PRN (12:00)
[2018-12-06 20:00] VITALS: BP 115/54
[2018-12-06] MEDS: ATORVASTATIN CALCIUM 20MG TABLET PO SCH (21:15)
[2018-12-06] MEDS: POLYETHYLENE GLYCOL 3350 (17GM) 1 DOSE PACK PO SCH (21:15)
[2018-12-07] MEDS: HYDRALAZINE HCL 50MG TABLET PO SCH ×3 (00:30→16:05)
[2018-12-07] MEDS: METHYL SALICYLATE/MENTHOL CREAM 85GM TOP SCH ×4 (00:31→18:38)
[2018-12-07] MEDS: GABAPENTIN 100MG CAPSULE PO SCH ×3 (06:41→21:08)
[2018-12-07 08:00] VITALS: BP 110/43
[2018-12-07 08:00] LABS: HEMATOCRIT. 31.4 % (36.0-48.0); HEMOGLOBIN. 9.8 g/dL (12.0-16.0); MEAN CORPUSCULAR HEMOGLOBIN 28.2 pg (28.0-32.0); MEAN CORPUSCULAR VOLUME 90.5 fL (81.0-99.0); MEAN PLATELET VOLUME 6.9 fl (7.4-10.4); PLATELET 316 x1000/uL (130-400); RED BLOOD CELL COUNT 3.47 mill/uL (4.2-5.4); RED CELL DISTRIBUTION WIDTH 18.9 % (11.6-14.6)
[2018-12-07 08:20] LABS: PHOSPHORUS 4.1 mg/dL (2.5-4.9)
[2018-12-07] MEDS: LIDOCAINE 5% PATCH TOP SCH ×2 (08:31)
[2018-12-07] MEDS: OXYCODONE HCL 5MG TABLET PO SCH ×3 (08:31→16:05)
[2018-12-07] MEDS: LINAGLIPTIN 5MG TABLET PO SCH (08:39)
[2018-12-07] MEDS: DOCUSATE SODIUM 100MG CAPSULE PO SCH ×2 (08:39→16:05)
[2018-12-07] MEDS: SPIRONOLACTONE 25MG TABLET PO SCH (08:39)
[2018-12-07] MEDS: FLUCONAZOLE 100MG TABLET PO SCH (08:39)
[2018-12-07] MEDS: LOSARTAN POTASSIUM 100 MG TABLET PO SCH (08:40)
[2018-12-07] MEDS: METOPROLOL TARTRATE 100MG TABLET PO SCH ×2 (08:41→21:09)
[2018-12-07] MEDS: NIFEDIPINE XL 90MG TAB PO SCH (09:00)
[2018-12-07] MEDS: TRAMADOL 50MG TABLET PO PRN (10:16)
[2018-12-07 18:35] LABS: PLATELET ESTIMATE NORMAL
[2018-12-07 20:00] VITALS: BP 166/63
[2018-12-07] MEDS: ATORVASTATIN CALCIUM 20MG TABLET PO SCH (21:08)
[2018-12-07] MEDS: POLYETHYLENE GLYCOL 3350 (17GM) 1 DOSE PACK PO SCH (21:08)
[2018-12-07] MEDS: EPOETIN ALFA 10000UNITS/ML VIAL SUBCUT SCH (21:09)
[2018-12-08] MEDS: METHYL SALICYLATE/MENTHOL CREAM 85GM TOP SCH ×3 (00:36→11:42)
[2018-12-08] MEDS: HYDRALAZINE HCL 50MG TABLET PO SCH ×2 (00:36→08:07)
[2018-12-08] MEDS: GABAPENTIN 100MG CAPSULE PO SCH ×2 (06:44→13:36)
[2018-12-08 07:01] LABS: HEMATOCRIT. 26.8 % (36.0-48.0); HEMOGLOBIN. 8.3 g/dL (12.0-16.0); MEAN CORPUSCULAR HEMOGLOBIN 28.2 pg (28.0-32.0); MEAN CORPUSCULAR VOLUME 90.4 fL (81.0-99.0); MEAN PLATELET VOLUME 6.7 fl (7.4-10.4); PLATELET 259 x1000/uL (130-400); RED BLOOD CELL COUNT 2.96 mill/uL (4.2-5.4); RED CELL DISTRIBUTION WIDTH 18.7 % (11.6-14.6)
[2018-12-08 08:00] VITALS: BP 116/47
[2018-12-08] MEDS: LINAGLIPTIN 5MG TABLET PO SCH (08:09)
[2018-12-08] MEDS: LOSARTAN POTASSIUM 100 MG TABLET PO SCH (08:09)
[2018-12-08] MEDS: OXYCODONE HCL 5MG TABLET PO SCH ×2 (08:09→13:40)
[2018-12-08] MEDS: SPIRONOLACTONE 25MG TABLET PO SCH (08:10)
[2018-12-08] MEDS: FLUCONAZOLE 100MG TABLET PO SCH (08:10)
[2018-12-08] MEDS: METOPROLOL TARTRATE 100MG TABLET PO SCH (08:11)
[2018-12-08] MEDS: NIFEDIPINE XL 90MG TAB PO SCH (08:11)
[2018-12-08] MEDS: DOCUSATE SODIUM 100MG CAPSULE PO SCH (08:12)
[2018-12-08] MEDS: LIDOCAINE 5% PATCH TOP SCH ×2 (08:13)
[2018-12-08 09:54] LABS: PLATELET ESTIMATE NORMAL
[2018-12-08 13:10] VITALS: BP 116/47
[2018-12-08 13:40] VITALS: BP 116/47
== END 2018-12-08 14:10 | DRG 52 ==
PROVIDERS: ADMIT Physical Medicine & Rehabilitation Spinal Cord Injury Medicine; ATTEND Internal Medicine
PROC: 5A1D70Z Performance of Urinary Filtration, Intermittent, Less than 6 Hours Per Day (ICD-10-PCS; 2018-11-21)
PROC: 5A1D70Z Performance of Urinary Filtration, Intermittent, Less than 6 Hours Per Day (ICD-10-PCS; 2018-11-22)
PROC: 5A1D70Z Performance of Urinary Filtration, Intermittent, Less than 6 Hours Per Day (ICD-10-PCS; principal; 2018-11-24)
PROC: 5A1D70Z Performance of Urinary Filtration, Intermittent, Less than 6 Hours Per Day (ICD-10-PCS; 2018-11-28)
PROC: 5A1D70Z Performance of Urinary Filtration, Intermittent, Less than 6 Hours Per Day (ICD-10-PCS; 2018-11-29)
PROC: 5A1D70Z Performance of Urinary Filtration, Intermittent, Less than 6 Hours Per Day (ICD-10-PCS; 2018-12-05)
PROC: 5A1D70Z Performance of Urinary Filtration, Intermittent, Less than 6 Hours Per Day (ICD-10-PCS; 2018-12-06)
DX: S34.109A Unspecified injury to unspecified level of lumbar spinal cord, initial encounter (principal); A41.9 Sepsis, unspecified organism; J18.9 Pneumonia, unspecified organism; N18.6 End stage renal disease; G82.20 Paraplegia, unspecified; M46.26 Osteomyelitis of vertebra, lumbar region; E46 Unspecified protein-calorie malnutrition; E87.2 Acidosis; I13.2 Hypertensive heart and chronic kidney disease with heart failure and with stage 5 chronic kidney disease, or end stage renal disease; N39.0 Urinary tract infection, site not specified; N17.9 Acute kidney failure, unspecified; M46.46 Discitis, unspecified, lumbar region; E11.69 Type 2 diabetes mellitus with other specified complication; D50.9 Iron deficiency anemia, unspecified; D63.8 Anemia in other chronic diseases classified elsewhere; E11.22 Type 2 diabetes mellitus with diabetic chronic kidney disease; E78.5 Hyperlipidemia, unspecified; F39 Unspecified mood [affective] disorder; I27.20 Pulmonary hypertension, unspecified; J45.909 Unspecified asthma, uncomplicated; K59.00 Constipation, unspecified; Z96.653 Presence of artificial knee joint, bilateral; D72.1 Eosinophilia; E87.5 Hyperkalemia; I50.9 Heart failure, unspecified; Z98.42 Cataract extraction status, left eye; Z82.49 Family history of ischemic heart disease and other diseases of the circulatory system; Z90.710 Acquired absence of both cervix and uterus; Z99.2 Dependence on renal dialysis
CPT/HCPCS: 36415; 71045; 72170; 73560; 74230; 80048; 82270; 82306; 82607; 82728; 82746; 82962; 83540; 83550; 83735; 84100; 84134; 84145; 84443; 86803; 87106; 92523; 92610; 92611; 93970; 94640; 97110; 97116; 97150; 97162; 97167; 97530; 97535; A6261; C1893; G0515; J0885; J1815; J2248; J2405; J2543; J3370; J7040; J7050; J7620; J8597